=== PATIENT | female | born 1970 | race Caucasian/White ===

== ENCOUNTER → 2017-10-17 | Outpatient (POV) | payer OTHER, SELFPAY | PROVIDERS: Visit Provider Podiatrist ==

== ENCOUNTER → 2017-11-21 09:14 | Outpatient (POV) | payer OTHER, SELFPAY | PROVIDERS: Visit Provider Podiatrist | DX: Z00.00 Encounter for general adult medical examination without abnormal findings (principal) ==

== ENCOUNTER 2017-12-29 07:07 | Day surgery (SDC) | payer OTHER, SELFPAY ==
[2017-12-23 14:34] VITALS: BMI 28.3
[2017-12-29] VITALS (12 sets, daily range): BP systolic 92–142; BP diastolic 55–87; PULSE 69–84; RESP 15–18; TEMP 36.6–36.7; O2SAT 97–100
[2017-12-29 07:24] LABS: Urine Pregnancy, HCG Qual. Negative (Negative)
--- NOTE | 2017-12-29 08:08 | HMH.PROC ---
[facility] Procedure Note Procedure Note:: Upper Endoscopy Procedure Report: Esophagogastroduodenoscopy with cold biopsies and TTS balloon dilation Endoscopost: Chandu Whitfield II, MD Referring Physician: Oliver Castaneda M.D. Date of Procedure: December 29, 2017 Equipment: Olympus GIF 180 standard upper endoscope Sedation: Fentanyl 150 mg IV/ Versed 9 mg IV Indications: Mrs. Armenta is a 47-year-old female who is here for diagnostic upper endoscopy. The patient did have dyspepsia over 2 months ago with epigastric abdominal discomfort with burning. She was placed on Dexilant which helped but she developed a cough. She has had frequent clearance of the throat, coughing and globus sensation. She has some dysphagia. She has more bloating and belching then she had previously. She does have a history of constipation/obstipation is improved when she takes the fiber bowel regimen (MiraLAX plus Metamucil). 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 Saurabh Silva). The patient reports no heartburn, reflux, nausea or early satiety. The patient did have a colonoscopy in September 2017 and had a 25-30 mm distal rectal polyp that encompassed one third half of the circumference of the distal rectum to the pectinate line. This was removed via submucosal resection/elevation of polyp with snare cautery. The patient's maternal and paternal grandmothers had colon cancer. Procedure: Prior to the procedure, a history and physical exam was performed, and patient's medications and allergies were reviewed. The risks, benefits and alternatives of the sedation and procedure were discussed with the patient. All questions were answered and informed consent was obtained. The patient was brought to the procedure room. Patient identification and proposed procedure were verified by the physician and the nurse. The patient was placed in a left lateral decubitus position and the scope was passed under direct vision. Throughout the procedure, the patient's blood pressure, pulse, and oxygen saturations were monitored continuously. The upper GI endoscopy was accomplished without difficulty. The patient tolerated the procedure well. Findings: The scope was passed directly into the upper esophagus and advanced to the third portion of the duodenum. The post bulbar duodenum and duodenal bulb were normal with normal mucosa and conniventes. The scope was withdrawn through a normal duodenal bulb and pylorus into the stomach. There was some bile reflux with mild linear erythema of the antrum. The remainder of the antrum, body and fundus of the stomach were grossly normal. Upon retroflexion there was a very small sliding 1-2 cm hiatal hernia. 2 biopsies were taken in the antrum and along the lesser curvature for histology to rule out gastritis and/or H pylori. The scope was then withdrawn into the esophagus. There was a single tongue of salmon colored mucosa that was biopsied to rule out short segment Cormier's esophagus. There were tertiary contractions and evidence of moderate esophageal dysmotility. There was a proximal esophageal inlet patch that was biopsied. The cricopharyngeus had reduced resting tone with spasm and the esophagus was dilated in this proximal esophagus with resistance at the cricopharyngeus. This was dilated to 20 mm with a TTS hydrostatic balloon. The remainder of the esophageal mucosa was normal. Impression: 1. Cricopharyngeal spasm status post dilation to 20 mm 2. Nonerosive GERD with mild esophageal dysmotility and very small sliding hiatal hernia 3. Large proximal esophageal inlet patch 4. Bile reflux with mild linear reactive gastritis Plan: I would consider dual low-dose PPI (omeprazole 20 mg daily) plus promotility therapy. I do feel that the patient has functional GERD. I do feel this relates to her obstipation and I would recommend co
--- NOTE | 2017-12-29 08:23 | P.PCN_ITS ---
[facility] Procedure Note Procedure Note:: Upper Endoscopy Procedure Report: Esophagogastroduodenoscopy with cold biopsies and TTS balloon dilation Endoscopost: Chandu Whitfield II, MD Referring Physician: Oliver Castaneda M.D. Date of Procedure: December 29, 2017 Equipment: Olympus GIF 180 standard upper endoscope Sedation: Fentanyl 150 mg IV/ Versed 9 mg IV Indications: Mrs. Armenta is a 47-year-old female who is here for diagnostic upper endoscopy. The patient did have dyspepsia over 2 months ago with epigastric abdominal discomfort with burning. She was placed on Dexilant which helped but she developed a cough. She has had frequent clearance of the throat , coughing and globus sensation. She has some dysphagia. She has more bloating and belching then she had previously. She does have a history of constipation/obstipation is improved when she takes the fiber bowel regimen ( MiraLAX plus Metamucil). 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 Saurabh Silva). The patient reports no heartburn, reflux, nausea or early satiety. The patient did have a colonoscopy in September 2017 and had a 25-30 mm distal rectal polyp that encompassed one third half of the circumference of the distal rectum to the pectinate line. This was removed via submucosal resection/elevation of polyp with snare cautery. The patient's maternal and paternal grandmothers had colon cancer. Procedure: Prior to the procedure, a history and physical exam was performed, and patient' s medications and allergies were reviewed. The risks, benefits and alternatives of the sedation and procedure were discussed with the patient. All questions were answered and informed consent was obtained. The patient was brought to the procedure room. Patient identification and proposed procedure were verified by the physician and the nurse. The patient was placed in a left lateral decubitus position and the scope was passed under direct vision. Throughout the procedure, the patient's blood pressure, pulse, and oxygen saturations were monitored continuously. The upper GI endoscopy was accomplished without difficulty. The patient tolerated the procedure well. Findings: The scope was passed directly into the upper esophagus and advanced to the third portion of the duodenum. The post bulbar duodenum and duodenal bulb were normal with normal mucosa and conniventes. The scope was withdrawn through a normal duodenal bulb and pylorus into the stomach. There was some bile reflux with mild linear erythema of the antrum. The remainder of the antrum, body and fundus of the stomach were grossly normal. Upon retroflexion there was a very small sliding 1-2 cm hiatal hernia. 2 biopsies were taken in the antrum and along the lesser curvature for histology to rule out gastritis and/or H pylori. The scope was then withdrawn into the esophagus. There was a single tongue of salmon colored mucosa that was biopsied to rule out short segment Cormier's esophagus. There were tertiary contractions and evidence of moderate esophageal dysmotility. There was a proximal esophageal inlet patch that was biopsied. The cricopharyngeus had reduced resting tone with spasm and the esophagus was dilated in this proximal esophagus with resistance at the cricopharyngeus. This was dilated to 20 mm with a TTS hydrostatic balloon. The remainder of the esophageal mucosa was normal. Impression: 1. Cricopharyngeal spasm status post dilation to 20 mm 2. Nonerosive GERD with mild esophageal dysmotility and very small sliding hiatal hernia 3. Large proximal esophageal inlet patch 4. Bile refl
--- NOTE | 2017-12-29 08:39 | P.PCN_ITS ---
[facility] Procedure Note Procedure Note:: Flexible Sigmoidoscopy Procedure Report: Sigmoidoscopy with cold snare polypectomy Endoscopist: Chandu Whitfield II, MD Referring physician: Oliver Castaneda M.D. Date of Procedure: December 29, 2017 Equipment: Olympus 180 variable stiffness pediatric colonoscope Sedation: Fentanyl 200 mg IV/ Versed 9 mg IV Indication: Mrs. Armenta is a 47-year-old female who is here for diagnostic sigmoidoscopy. The patient did have a colonoscopy in September 2017 and had a 25-30 mm distal rectal polyp that encompassed one third half of the circumference of the distal rectum to the pectinate line. This was removed via submucosal resection/elevation of polyp with snare cautery. 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 The patient's maternal and paternal grandmothers had colon cancer. The patient reports no rectal bleeding, abdominal pain, weight loss or change in bowel habits. She does have long-standing obstipation/constipation and takes her combined fiber bowel regimen (MiraLAX plus Metamucil) primarily during the week. Procedure: Prior to the procedure, a history and physical exam was performed, and patient' s medications and allergies were reviewed. The risks, benefits and alternatives of the sedation and procedure were discussed with the patient. All questions were answered and informed consent was obtained. The patient was brought to the procedure room. Patient identification and proposed procedure were verified by the physician and the nurse. The patient was placed in a left lateral decubitus position and the scope was passed under direct vision. Throughout the procedure, the patient's blood pressure, pulse, and oxygen saturations were monitored continuously. The colonoscopy was accomplished without difficulty. The patient tolerated the procedure well. Findings: The scope was passed directly through the anal canal into the rectum and advanced to 40 cm. Upon withdrawal the sigmoid and rectum were normal. There were no mucosal abnormalities. Upon retroflexion, there was white fibrotic scar from where the polyp was removed. Some of the scar tissue was shaved via cold snare polypectomy but this was minimal and there was no residual polyp at the site. Impression: 1. No residual rectal polyp with some fibrosis at polypectomy site Plan: I would recommend sigmoidoscopy in 1 year and I will plan repeat colonoscopy at 3 years (September 2020).
== END 2017-12-29 09:40 | disposition home or self-care (01) ==
LOC: OUTP 07:08
PROVIDERS: PCP Internal Medicine Adolescent Medicine; Visit Provider Internal Medicine Gastroenterology
PROC: 0DJD8ZZ Inspection of Lower Intestinal Tract, Via Natural or Artificial Opening Endoscopic (ICD-10-PCS; CPT 45330; principal; 2017-12-29 08:00)
PROC: 0DJ08ZZ Inspection of Upper Intestinal Tract, Via Natural or Artificial Opening Endoscopic (ICD-10-PCS; CPT 43235; 2017-12-29 08:00)
DX: J39.2 Other diseases of pharynx (principal); K21.9 Gastro-esophageal reflux disease without esophagitis; K44.9 Diaphragmatic hernia without obstruction or gangrene; K22.4 Dyskinesia of esophagus; K29.60 Other gastritis without bleeding; K63.89 Other specified diseases of intestine
CPT/HCPCS: 43239; 43249; 45331; 81025; 99152; 99153; C1726

== ENCOUNTER → 2018-01-05 13:30 | Outpatient (CLI) | payer OTHER, SELFPAY ==
--- NOTE | 2018-01-05 14:19 | US_ITS ---
ULTRASOUND THYROID PROCEDURE: Multiple sagittal & transverse ultrasound images of the thyroid. HISTORY: Follow-up thyroid nodules history of possible dose thyroiditis. COMPARISON: Previous thyroid ultrasound 09/09/2016 & January 2012 ----- FINDINGS: Thyroid has a lobulated irregular contour bilateral, withslightly coarse inhomogeneous architecture bilateral. Generous vascularity to both right and left lobe again seen is RIGHT LOBE: 3.3 cm length x 1.1 cm AP X1 .3 cm wide Nodule A: Solid nodule 8 mm AP & 8 mm transverse. Mildly hyperechoic at upper pole right lobe. Nodularity at the upper pole is similar to previous study did not slightly diminished. Similar nodularity of not slightly less pronounced than 2016. No significant progression findings . LEFT LOBE: 3 cm length x 1.1 cm x 1.1 cm. Left lobe also has coarse slightly inhomogeneous character but no definitive nodule or mass. . : ISTHMUS: Again see a solid mild hypoechoic nodule at the left aspect of the isthmus. It measures up to 9 mm transverse x 1.1 mm AP. Similar in size. No significant change. IMPRESSION No significant new findings versus 2016. Modest size gland with inhomogeneous coarse architecture... Compatible with thyroiditis. Most Notable Is a Solid Nodule is seen at the left isthmus. It is Stable With no significant change. Vague nodular appearance at the upper pole right lobe again evident. No progression. Basically stable
== END ==
PROVIDERS: PCP Internal Medicine Adolescent Medicine; Visit Provider Otolaryngology
DX: E04.1 Nontoxic single thyroid nodule (principal)
CPT/HCPCS: 76536

== ENCOUNTER → 2018-01-26 15:36 | Outpatient (POV) | payer OTHER, SELFPAY | PROVIDERS: PCP Internal Medicine Adolescent Medicine; Visit Provider Nurse Practitioner Acute Care | DX: Z00.00 Encounter for general adult medical examination without abnormal findings (principal) ==

== ENCOUNTER → 2018-11-12 10:04 | Outpatient (CLI) | payer OTHER, SELFPAY ==
--- NOTE | 2018-11-12 10:07 | US_ITS ---
US gallbladder HISTORY: ITS.REASON: RUQ PAIN ORDERING PHYSICIAN: Jeanne Coyne PATIENT AGE: 47 years Comparison: None FINDINGS: PANCREAS: Unremarkable. No obvious mass or abnormal fluid collection. No ductal dilatation LIVER: No focal liver lesions demonstrated. Homogeneous echogenicity. No intrahepatic biliary ductal dilatation evident RIGHT KIDNEY: Unremarkable. Normal size and echogenicity. No hydronephrosis GALLBLADDER: No gallstones, gallbladder wall thickening, pericholecystic fluid, or biliary dilatation. There is a minimal amount of sludge versus precipitated bile of questioned clinical significance IMPRESSION: Minimum gallbladder sludge versus concentrated bile of questioned clinical significance otherwise Negative gallbladder/right upper quadrant ultrasound
--- NOTE | 2018-11-12 15:07 | US_ITS ---
US transvaginal HISTORY: Pelvic pain with abnormal bleeding, intermittent spotting cycles, prior ablation ITS.REASON: US T/V- Abnormal bleeding ORDERING PHYSICIAN: Jeanne Coyne PATIENT AGE: 47 years Comparison: None FINDINGS: UTERUS: The uterus measures 10 x 4 x 6.4 cm. Combined endometrial thickness is 1 cm. No uterine mass evident. RIGHT OVARY: 4.2 x 4 x 4.4 cm there is a 3.7 cm simple right ovarian cyst LEFT OVARY: 2 x 2 cm, unremarkable CUL-DE-SAC FLUID: No cul-de-sac fluid apparent OTHER FINDINGS: None IMPRESSION: 1. 3.7 cm simple appearing right ovarian cyst 2. Bulky uterus. Endometrial thickness upper limits of normal. No obvious uterine mass or fibroid
== END ==
PROVIDERS: PCP Internal Medicine Adolescent Medicine; Visit Provider Nurse Practitioner Family
DX: N92.6 Irregular menstruation, unspecified (principal); R10.11 Right upper quadrant pain
CPT/HCPCS: 76705; 76830

== ENCOUNTER → 2018-11-16 09:11 | Outpatient (CLI) | payer OTHER, SELFPAY ==
--- NOTE | 2018-11-16 09:14 | NM_ITS ---
NM hepatobiliary wo pharm HISTORY: Right upper quadrant pain, nausea after eating ITS.REASON: RUQ PAIN ORDERING PHYSICIAN: Oliver Castaneda MD PATIENT AGE: 47 years COMPARISON: None DOSE: 8.5 mCi technetium Choletec, fatty meal with ensure. Some nausea noted after the fatty meal FINDINGS: Homogeneous activity is present within the hepatic parenchyma. Activity is present in the gallbladder by 30 minutes. Activity is present in the small bowel by 10 minutes. The gallbladder ejection fraction is calculated to be 94% The patient did not report pain or other symptoms during CCK infusion. IMPRESSION: Unremarkable hepatobiliary scan and gallbladder ejection fraction. No evidence of common or cystic duct obstruction with normal gallbladder ejection fraction
--- NOTE | 2018-11-16 09:54 | HMH.ITSHM ---
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 []ZYRTEC SYNTHROID OMEPRAZOLE VIBRID
== END ==
PROVIDERS: PCP Internal Medicine Adolescent Medicine; Visit Provider Internal Medicine Adolescent Medicine
DX: R10.11 Right upper quadrant pain (principal)
CPT/HCPCS: 78226; A9537

== ENCOUNTER → 2018-11-23 09:18 | Outpatient (POV) | payer OTHER, SELFPAY | PROVIDERS: Visit Provider Nurse Practitioner Acute Care | DX: Z00.00 Encounter for general adult medical examination without abnormal findings (principal) ==

== ENCOUNTER → 2018-11-24 13:00 | Outpatient (POV) | payer OTHER, SELFPAY | PROVIDERS: Visit Provider Dermatology | DX: Z00.00 Encounter for general adult medical examination without abnormal findings (principal) ==

== ENCOUNTER → 2019-01-11 16:11 | Outpatient (CLI) | payer OTHER, SELFPAY ==
--- NOTE | 2019-01-11 16:16 | XR_ITS ---
XR foot wt bearing LT 3V HISTORY: ITS.REASON: pain ORDERING PHYSICIAN: Carie Curtis DPM PATIENT AGE: 48 years COMPARISON: None FINDINGS: No fracture or dislocation. No lytic or blastic change. There is normal mineralization.. The joint spaces are well-preserved. No significant degenerative/arthritic changes. No erosive changes evident. There is mild pes planus IMPRESSION: Mild pes planus otherwise negative left foot
--- NOTE | 2019-01-11 16:16 | XR_ITS ---
XR foot wt bearing RT 3V HISTORY: Right foot pain and swelling, plantar fibroma ITS.REASON: pain ORDERING PHYSICIAN: Carie Curtis DPM PATIENT AGE: 48 years COMPARISON: None FINDINGS: There is minimal hallux valgus with mild hypertrophic changes of the distal aspect of the first metatarsal. Bony hypertrophy versus an old fracture noted along the dorsal and proximal aspect of the navicular. There is a small calcaneal spur at 6 mm. No fracture or dislocation. No lytic or blastic change. IMPRESSION: 1. Mild hallux valgus with bunion formation. 2. Spurring versus old fracture of the dorsal and proximal aspect of the navicular
== END ==
PROVIDERS: PCP Internal Medicine Adolescent Medicine; Visit Provider Podiatrist
DX: M72.2 Plantar fascial fibromatosis (principal)
CPT/HCPCS: 73630

== ENCOUNTER → 2019-02-24 08:35 | Outpatient (CLI) | payer OTHER, SELFPAY ==
--- NOTE | 2019-02-24 08:36 | MR_ITS ---
MR foot RT wo/w con CLINICAL INDICATION: ] Pain laterally swelling ITS.REASON: r/o peroneal tendon tear, 4-5th met fx. ORDERING PHYSICIAN: Carie Curtis DPM PATIENT AGE: 48 years Comparison: 01/11/2019 TECHNIQUE: Routine multiplanar multiecho sequences are performed without and with contrast. FINDINGS: These are large [id number] images which results in some decrease in definition of the ligamentous and tendinous structures. Bony structures: Minimal edema and enhancement is noted within the superior posterior aspect of the navicular. This is nonspecific. Mild hypertrophic changes are present at the talonavicular joint dorsally. There is mild hallux valgus with mild osteoarthritis of the first MTP joint. There is some cortical irregularity of the distal and medial aspect of the first metatarsal, and hyperintense on T2 with some minimal enhancement. Small amount of fluid signal intensity is present between the first and second, second and third, and third and fourth metatarsal distally and may be related to intermetatarsal bursitis. The Achilles tendon has an unremarkable appearance.. The tibiofibular and talofibular ligaments appear intact. The deltoid ligament also appears intact. The posterior tibial, flexor digitorum longus, and flexor hallucis longus tendons have an unremarkable appearance. The peroneal brevis tendon has an abnormal contour with a catheter should not deformity indicated of a partial split rupture. There is marked thinning of the peroneal brevis tendon distally as well. The peroneal longus has an unremarkable appearance. IMPRESSION: 1. Deformity of the peroneal brevis tendon inferior to the tip of the lateral malleolus consistent with a partial split rupture with thinning of the peroneal brevis tendon distally 2. Mild hallux valgus with subcortical cystic changes of the distal aspect of the first metatarsal medially. 3. Minimal edema and enhancement of the anterior superior navicular
== END ==
PROVIDERS: PCP Internal Medicine Adolescent Medicine; Visit Provider Podiatrist
DX: M76.71 Peroneal tendinitis, right leg (principal)
CPT/HCPCS: 73720; A9576

== ENCOUNTER 2019-03-17 16:02 | Outpatient (RCR) | payer OTHER, SELFPAY | END 2019-03-17 16:15 | disposition home or self-care (01) | LOC: PT 16:02 | PROVIDERS: Visit Provider Orthopaedic Surgery | DX: M65.4 Radial styloid tenosynovitis [de Quervain] (principal); M79.645 Pain in left finger(s); M25.532 Pain in left wrist | CPT/HCPCS: 97760 ==

== ENCOUNTER → 2019-03-18 14:20 | Outpatient (CLI) | payer OTHER, SELFPAY ==
--- NOTE | 2019-03-18 14:22 | MR_ITS ---
MR foot LT wo/w con CLINICAL INDICATION: ITS.REASON: peroneal tendon tear ORDERING PHYSICIAN: Carie Curtis DPM PATIENT AGE: 48 years Comparison: 01/11/2019 TECHNIQUE: Routine multiplanar multiecho sequences are performed without and with gadolinium enhancement. FINDINGS: Minimal hallux valgus. No fracture or dislocation. No bone marrow edema apparent. A small amount fluid is present between the head of the second and third metatarsal and the third and fourth metatarsals. The tibiofibular and talofibular ligaments are unremarkable. The deltoid tendon has an unremarkable appearance. Particularly tendon is intact. There is some thinning of the posterior tibialis tendon distally at its insertion upon the navicular some of which may be due to magic angle artifact. Tendinopathy/tendinosis is also considered. The flexor digitorum longus and flexor hallucis longus has an unremarkable appearance. The anterior tibialis and extensor tendons are unremarkable. There is some thinning of the peroneal longus and brevis tendons distally with slight increased T2 signal which may be due to tendinopathy/tendinosis. A definite tear is not identified. IMPRESSION: 1. Minimal hallux valgus. 2. There is some thinning of the posterior tibialis distally as well as the peroneal tendons which may be due to tendinopathy/tendinosis. No definite tendon tear apparent. 3. Possible intermetatarsal bursitis at the second and third intermetatarsal space
== END ==
PROVIDERS: PCP Internal Medicine Adolescent Medicine; Visit Provider Podiatrist
DX: S86.312A Strain of muscle(s) and tendon(s) of peroneal muscle group at lower leg level, left leg, initial encounter (principal)
CPT/HCPCS: 73720; A9576

== ENCOUNTER 2019-04-21 17:30 | Outpatient (RCR) | payer OTHER, SELFPAY ==
--- NOTE | 2019-04-12 17:02 | HMH.PTOPEV ---
PT Outpatient Evaluation Rehab PT Outpatient Evaluation Start: 04/12/19 16:09 Freq: Status: Active Protocol: Document 04/12/19 16:28 BRY (Rec: 04/12/19 17:02 TERENCETIFFANI [id number]) Electronically Signed By Jeison Franco PT 04/12/19 16:28 Outpatient Therapy Subjective History Subjective History Pt reports to PT for c/o L foot pain. Pt reports she had R foot peroneal tendon tear and has been in a boot since January. Pt reports L foot pain began in February after R foot booted. Pt has ankle brace on L foot. Chief Complaint Pain,Gives out/Unstable, Weakness Symptom Type Ache,Throb,Sharp,Dull,Stabbing Symptoms Relieved By Nothing Symptoms Aggravated By Standing,Physical Activity, Walking Prior Functional Limitations None Current Functional Limitations Recreation Activity,Walking, Stairs,Balance Symptom Description Intermittent Level of pain today (0-10) 0 Pain scale - at its best (0-10) 0 Pain scale - at its worst (0-10) 6 Ankle/Foot Eval Gait Observation General Gait Pattern Observation Antalgic Gait Assistive Device Ambulation Assistive Device None Palpation Tenderness left Ankle/Foot Palpation Findings Tenderness Ankle/Foot Palpation Overall Comment TTP L peroneal insertion ATF TTP negative PTF TTP negative CF TTP negative Deltoid ligament TTP negative ROM Ankle/Foot Dorsiflexion w/Knee Extended 10 Active Range Motion (degrees) Ankle/Foot Plantar Flexion Active Range 50 of Motion (degrees) Ankle/Foot Eversion Active Range of 30 Motion (degrees) Ankle/Foot Inversion Active Range of 35 Motion (degrees) MMT Ankle Dorsiflexion Strength Grade 5 Normal Ankle Plantarflexion Strength Grade 5 Normal Foot Eversion Strength Grade 4 Good Foot Inversion Strength Grade 4 Good Ankle Dorsiflexors Muscle Tone Normal Description Special Tests Ankle Anterior Drawer Test Negative Left Ankle Eversion Test Negative Left Ankle Inversion (supination) Test Negative Left Outpatient Therapy Assessment Impairments Problems/Impairmments Palpation Tenderness,Impaired Strength,Impaired Gait Pattern ,Impaired Walking,Impaired Standing,Impaired Household Care,Impaired Stair Climbing,
== END 2019-04-21 17:35 | disposition home or self-care (01) ==
LOC: PT 17:30
PROVIDERS: Visit Provider Podiatrist
DX: M76.72 Peroneal tendinitis, left leg (principal)
CPT/HCPCS: 97033; 97035; 97110; 97163

== ENCOUNTER → 2019-05-20 11:09 | Outpatient (CLI) | payer OTHER, SELFPAY ==
--- NOTE | 2019-05-20 11:28 | MM_ITS ---
MM Dig screening mamm BI w/CAD ORDERING PHYSICIAN : Pee Back MD PATIENT AGE: 48 years GENDER: Female \COMPARISON: Previous mammograms: June 2017, May 2016,. 2014, 2013 digital mammogram studies,, as well as film screen studies, September 2009, 2007: INDICATION: ITS.REASON: Routine Screening Mammogram TECHNIQUE: Standard CC and MLO images were obtained. Bilateral axillary cc views additional spot views deep right breast R2 CAD reviewed. FINDINGS : The previous studies are again very helpful in this patient . Stable areas of asymmetric density are again seen Moderately dense and inhomogeneous fibroglandular elements bilaterally. This pattern slightly decreases sensitivity of mammography Self breast examination would be encouraged given this pattern , particularly for this in this knowledgeable/ experienced patient regarding breast evaluation. Left breast: No new areas significant concern Area of asymmetric island of density medial left breast is been present [id number] with no significant change. Area of density at the deep breast upper-outer quadrant is again noted and appears overall stable. .. Thus these areas can befollowed safely. Right breast: Again stable areas of asymmetric glandular density throughout upper-outer quadrant of right breast. Minimal nodularity medial breast axillary cc view overall appears reasonably stable. Labeled A. Additional spot views performed in this region showed density to compress out. I believe it is Similar to 2016 on MLO view in can be followed. However to be extra cautious a follow-up right mammogram 6 -- 9 months suggested ......IMPRESSION:.......... No new areas of significant concern. . Heterogeneous, asymmetric breast pattern. This slightly decreases sensitivity of mammography but significant appearing area since our studies. There is minor focal density at the deep margin of right breast appears overall similar to studies dating back to 2016;-but because of this feature I would suggest a follow-up right mammogram to include deep view of medial right breast in 6-9 months to further confirm stability here. BI-RADS Category: 3 Probably Benign Finding Short Term Follow-up RECOMMENDED FOLLOW-UP: 6M 6 MONTH FOLLOW-UP (A letter has been sent to the patient regarding results of the study.)
== END ==
PROVIDERS: PCP Internal Medicine Adolescent Medicine; Visit Provider Nurse Practitioner Obstetrics & Gynecology
DX: Z12.31 Encounter for screening mammogram for malignant neoplasm of breast (principal)
CPT/HCPCS: 77067

== ENCOUNTER → 2019-09-30 13:41 | Outpatient (CLI) | payer OTHER, SELFPAY ==
--- NOTE | 2019-09-30 13:59 | US_ITS ---
PROCEDURE: US TRANSVAGINAL CLINICAL INDICATION: US T/V- Menorrhagia Heavy irregular cycles COMPARISON: TRANVAG US transvaginal from 11/12/2018 FINDINGS: UTERUS: The uterus is 10 x 4.6 x 6 cm. Combined endometrial thickness is 5 mm. Small amount fluid is present within the endometrium. No uterine mass evident. LEFT OVARY: 2.9 x 3 cm. Blood flow is present. No obvious mass. RIGHT OVARY: 4.8 x 4.6 cm. There is a right ovarian cyst 4 x 3.7 cm. The cyst does appear simple with no internal septations or internal echoes. Cyst is not significantly changed. No cul-de-sac fluid. IMPRESSION: 1. Bulky uterus. No endometrial thickening. Small amount of endometrial fluid. 2. Stable 4 cm right ovarian cyst Dictated by: Leonardo Canales MD 09/30/2019 16:29 Electronically signed by Leonardo Canales MD in [place] 09/30/2019 16:29
== END ==
PROVIDERS: PCP Internal Medicine Adolescent Medicine; Visit Provider Nurse Practitioner Obstetrics & Gynecology
DX: N92.0 Excessive and frequent menstruation with regular cycle (principal)
CPT/HCPCS: 76830

== ENCOUNTER → 2019-10-06 09:12 | Outpatient (CLI) | payer OTHER, SELFPAY ==
[2019-10-06 09:49] LABS: Basophils % 0.8 % (0.1-2.0); Eosinophils # 0.1 K/mm3 (0.0-0.4); Eosinophils % 1.3 % (0.1-12.0); Hematocrit 32.2 % (37.0-47.0); Hemoglobin 9.4 g/dL (12.2-16.2); Lymphocytes # 2.2 K/mm3 (0.7-4.5); Lymphocytes % 39.1 % (10-50); Mean Corpuscular Hemoglobin 26.3 pg (27.0-31.2); Mean Corpuscular Volume 90.7 fl (81-99); Mean Platelet Volume 8.2 fl (7.4-10.4); Monocytes # 0.3 K/mm3 (0.1-1.0); Monocytes % 4.7 % (1.7-9.3); Neutrophils % 54.2 % (37.0-80.0); Platelet Count 360 K/mm3 (142-424); Red Blood Count 3.55 M/mm3 (4.20-5.40); Red Cell Distribution Width 13.9 % (11.5-17.5); White Blood Count 5.5 K/mm3 (4.8-10.8)
[2019-10-06 15:20] LABS: Alanine Aminotransferase 15 U/L (12-78); Albumin Level 3.4 gm/dL (3.4-5.0); Alkaline Phosphatase 59 U/L (46-116); Aspartate Amino Transferase 17 U/L (15-37); Bilirubin,Total 0.2 mg/dL (0.2-1.0); Blood Urea Nitrogen 15 mg/dL (7-18); Carbon Dioxide 26 mmol/L (21.0-32.0); Chloride 105 mmol/L (98-107); Chol/HDL Ratio 3.4 (1-3.5); Cholesterol 183 mg/dL (140-200); Creatinine,Serum 0.98 mg/dL (0.55-1.02); Estimated Glomerular Filt Rate 60 ml/min (>60); Free Thyroxine Index 2.7 ug/dL (5.93-13.13); GFR (African American) 73 ML/MIN (>60); Globulin 3.3 gm/dl (1.3-3.2); Glucose 91 mg/dL (74-106); HDL Cholesterol 54 mg/dL (29-89); LDL Cholesterol 120 mg/dL (0-130); Sodium 141 mmol/L (136-145); Thyroid Stimulating Hormone 1.52 uIU/ml (0.358-3.740); Total Protein,Serum 6.7 gm/dL (6.4-8.2); Triglycerides 47 mg/dL (30-200); Triiodothryronine (T3) Uptake 39 % (31-39); VLDL Cholesterol 9 mg/dL (0-40)
== END ==
PROVIDERS: Visit Provider Internal Medicine Adolescent Medicine
DX: E03.9 Hypothyroidism, unspecified (principal); I34.1 Nonrheumatic mitral (valve) prolapse
CPT/HCPCS: 36415; 80053; 80061; 84436; 84443; 84479; 85025

== ENCOUNTER → 2019-10-11 15:31 | Outpatient (POV) | payer OTHER, SELFPAY | PROVIDERS: Visit Provider Nurse Practitioner Family | DX: Z00.00 Encounter for general adult medical examination without abnormal findings (principal) ==

== ENCOUNTER → 2019-10-21 09:30 | Outpatient (CLI) | payer OTHER, SELFPAY ==
[2019-10-21 10:02] LABS: Basophils # 0.1 K/mm3 (0-0.2); Basophils % 1.1 % (0.1-2.0); Eosinophils # 0.1 K/mm3 (0.0-0.4); Eosinophils % 1.4 % (0.1-12.0); Hemoglobin 10.6 g/dL (12.2-16.2); Lymphocytes # 1.9 K/mm3 (0.7-4.5); Lymphocytes % 32.7 % (10-50); Mean Corpuscular HGB Conc 29.4 g/dL (31.8-35.4); Mean Corpuscular Hemoglobin 26.4 pg (27.0-31.2); Mean Corpuscular Volume 89.8 fl (81-99); Mean Platelet Volume 8.2 fl (7.4-10.4); Monocytes # 0.3 K/mm3 (0.1-1.0); Monocytes % 5.2 % (1.7-9.3); Neutrophils # 3.5 K/mm3 (1.8-7.8); Neutrophils % 59.6 % (37.0-80.0); Platelet Count 345 K/mm3 (142-424); Red Blood Count 4.01 M/mm3 (4.20-5.40); White Blood Count 5.8 K/mm3 (4.8-10.8)
[2019-10-21 11:23] LABS: Anion Gap 12.9 mEq/L (5-15); Blood Urea Nitrogen 19 mg/dL (7-18); Calcium 8.4 mg/dL (8.5-10.1); Carbon Dioxide 28 mmol/L (21.0-32.0); Chloride 104 mmol/L (98-107); Creatinine,Serum 1.22 mg/dL (0.55-1.02); Estimated Glomerular Filt Rate 47 ml/min (>60); GFR (African American) 56 ML/MIN (>60); Glucose 78 mg/dL (74-106); Potassium 3.9 mmoL/L (3.5-5.1); Sodium 141 mmol/L (136-145)
== END ==
PROVIDERS: Visit Provider Nurse Practitioner Obstetrics & Gynecology
DX: Z01.818 Encounter for other preprocedural examination (principal); N92.0 Excessive and frequent menstruation with regular cycle
CPT/HCPCS: 36415; 80048; 85025

== ENCOUNTER → 2019-11-23 08:39 | Outpatient (POV) | payer OTHER, SELFPAY | PROVIDERS: Visit Provider Dermatology | DX: Z00.00 Encounter for general adult medical examination without abnormal findings (principal) ==

== ENCOUNTER → 2019-11-30 13:11 | Outpatient (CLI) | payer OTHER, SELFPAY ==
--- NOTE | 2019-11-30 13:13 | MM_ITS ---
PROCEDURE: MM DIG MAMM BI DX with 3D tomosynthesis CLINICAL INDICATION: 6 month follow up xmg COMPARISON: DMSB DIG MAMM-SCREEN MURIEL from 05/28/2016 DMSB DIG MAMM-SCREEN MURIEL W/CAD from 07/04/2017 DIG MAMM-SCREEN MURIEL from 05/20/2019 TECHNIQUE: Standard CC and MLO images were obtained along with two view breast 3D tomosynthesis. FINDINGS: Average fibroglandular tissue. Scattered areas of asymmetry not significantly changed. No malignant appearing mass or malignant-appearing microcalcification. Benign-appearing nodular opacity is present in the lower aspect of the right breast not significantly changed at approximately 4 mm. Faint calcifications noted in the outer aspect of the right breast which on tomograms appear to be vascular IMPRESSION: BI-RAD Category: 2 Benign Finding(s) FOLLOW-UP: 1YR 1 Year Follow-up (A letter has been sent to the patient regarding results of the study.) Dictated by: Leonardo Canales MD 12/06/2019 09:39 Electronically signed by Leonardo Canales MD in [place] 12/06/2019 09:39
== END ==
PROVIDERS: PCP Internal Medicine Adolescent Medicine; Visit Provider Nurse Practitioner Obstetrics & Gynecology
DX: R92.8 Other abnormal and inconclusive findings on diagnostic imaging of breast (principal)
CPT/HCPCS: 77063; 77066; 77067

== ENCOUNTER → 2019-12-17 09:51 | Outpatient (CLI) | payer OTHER, SELFPAY ==
[2019-12-17 10:51] LABS: Basophils # 0.1 K/mm3 (0-0.2); Basophils % 0.9 % (0.1-2.0); Eosinophils # 0.1 K/mm3 (0.0-0.4); Eosinophils % 0.9 % (0.1-12.0); Hematocrit 41.5 % (37.0-47.0); Lymphocytes # 1.9 K/mm3 (0.7-4.5); Lymphocytes % 32.2 % (10-50); Mean Corpuscular HGB Conc 31.4 g/dL (31.8-35.4); Mean Corpuscular Hemoglobin 27.7 pg (27.0-31.2); Mean Corpuscular Volume 88.3 fl (81-99); Mean Platelet Volume 7.8 fl (7.4-10.4); Monocytes # 0.3 K/mm3 (0.1-1.0); Monocytes % 4.9 % (1.7-9.3); Neutrophils # 3.6 K/mm3 (1.8-7.8); Platelet Count 286 K/mm3 (142-424); Red Cell Distribution Width 17.8 % (11.5-17.5); White Blood Count 5.8 K/mm3 (4.8-10.8)
[2019-12-17 12:27] LABS: Alanine Aminotransferase 17 U/L (12-78); Albumin Level 3.8 gm/dL (3.4-5.0); Albumin/Globulin Ratio 1.2 (1.1-1.8); Alkaline Phosphatase 59 U/L (46-116); Anion Gap 12.3 mEq/L (5-15); Aspartate Amino Transferase 19 U/L (15-37); Bilirubin,Total 0.3 mg/dL (0.2-1.0); Blood Urea Nitrogen 15 mg/dL (7-18); Calcium 8.5 mg/dL (8.5-10.1); Carbon Dioxide 28 mmol/L (21.0-32.0); Chloride 105 mmol/L (98-107); Creatinine,Serum 0.97 mg/dL (0.55-1.02); Estimated Glomerular Filt Rate 61 ml/min (>60); Free Thyroxine Index 2.1 ug/dL (5.93-13.13); GFR (African American) 73 ML/MIN (>60); Globulin 3.2 gm/dl (1.3-3.2); Glucose 92 mg/dL (74-106); Potassium 4.3 mmoL/L (3.5-5.1); Sodium 141 mmol/L (136-145); T4 (Thyroxine) 6.1 ug/dl (4.7-13.3); Thyroid Stimulating Hormone 2.06 uIU/ml (0.358-3.740); Triiodothryronine (T3) Uptake 34 % (31-39)
[2019-12-18 15:32] LABS: Vitamin B12 798 pg/mL (232-1245); Vitamin D 25 Hydroxy 29.4 ng/mL (30.0-100.0)
== END ==
PROVIDERS: Visit Provider Internal Medicine Adolescent Medicine
DX: D50.0 Iron deficiency anemia secondary to blood loss (chronic) (principal); E03.9 Hypothyroidism, unspecified; E55.9 Vitamin D deficiency, unspecified
CPT/HCPCS: 36415; 80053; 82607; 82652; 84436; 84443; 84479; 85025

== ENCOUNTER → 2020-01-24 15:34 | Outpatient (CLI) | payer OTHER, SELFPAY ==
[2020-01-24 17:12] LABS: Anion Gap 6.1 mEq/L (5-15); Blood Urea Nitrogen 17 mg/dl (7-17); Calcium 8.8 mg/dl (8.4-10.2); Carbon Dioxide 27 mmol/L (22.0-30.0); Chloride 103 mmol/L (98-107); Estimated Glomerular Filt Rate 52 ml/min (>60); GFR (African American) 63 ML/MIN (>60); Glucose 97 mg/dl (74-100); Potassium 4.1 mmoL/L (3.5-5.1); Sodium 132 mmol/L (136-145)
[2020-01-24 17:32] LABS: Troponin I < 0.01 ng/ml (0.00-0.034)
[2020-01-24 18:57] LABS: Basophils % 0.5 % (0.1-2.0); Eosinophils # 0.1 K/mm3 (0.0-0.4); Eosinophils % 0.7 % (0.1-12.0); Hematocrit 40.6 % (37.0-47.0); Hemoglobin 12.9 g/dL (12.2-16.2); Lymphocytes # 2.4 K/mm3 (0.7-4.5); Lymphocytes % 33.2 % (10-50); Mean Corpuscular HGB Conc 31.8 g/dL (31.8-35.4); Mean Corpuscular Hemoglobin 29.2 pg (27.0-31.2); Mean Corpuscular Volume 91.6 fl (81-99); Monocytes # 0.3 K/mm3 (0.1-1.0); Monocytes % 4.2 % (1.7-9.3); Neutrophils # 4.5 K/mm3 (1.8-7.8); Neutrophils % 61.4 % (37.0-80.0); Platelet Count 231 K/mm3 (142-424); Red Blood Count 4.43 M/mm3 (4.20-5.40); Red Cell Distribution Width 16.7 % (11.5-17.5); White Blood Count 7.3 K/mm3 (4.8-10.8)
== END ==
PROVIDERS: Visit Provider Urology
DX: R00.0 Tachycardia, unspecified (principal); R06.00 Dyspnea, unspecified; R07.89 Other chest pain; R12 Heartburn; R55 Syncope and collapse
CPT/HCPCS: 36415; 80048; 84484; 85025

== ENCOUNTER → 2020-01-27 11:57 | Outpatient (CLI) | payer OTHER, SELFPAY | PROVIDERS: PCP Internal Medicine Adolescent Medicine; Referring Provider Urology; Visit Provider Internal Medicine Adolescent Medicine | DX: R00.0 Tachycardia, unspecified (principal); R06.00 Dyspnea, unspecified; R07.89 Other chest pain; R12 Heartburn; R55 Syncope and collapse; Z86.79 Personal history of other diseases of the circulatory system | CPT/HCPCS: 93306 ==

== ENCOUNTER → 2020-03-25 09:43 | Outpatient (CLI) | payer OTHER, SELFPAY ==
[2020-03-26 08:30] LABS: Covid-19 Nasal PCR Sendout UK NOT DETECTED
== END ==
PROVIDERS: Visit Provider Internal Medicine Gastroenterology
DX: Z03.818 Encounter for observation for suspected exposure to other biological agents ruled out (principal)
CPT/HCPCS: U0003

== ENCOUNTER 2020-03-27 07:32 | Day surgery (SDC) | payer OTHER, SELFPAY ==
--- NOTE | 2020-03-23 08:54 | SUR.PREOP ---
03/22/2020--PHONE CALL MADE TO PATIENT. PATIENT UNDERSTANDS THAT LAB WORK AND COVID TESTING NEEDS TO BE COMPLETED BY 11 AM ON 03/25/2020. PATIENT UNDERSTANDS IF LAB WORK AND COVID-19 TESTS ARE NOT COMPLETED BY 12PM ON THAT DATE, THE SURGERY SCHEDULED WILL BE CANCELLED AND RESCHEDULED FOR ANOTHER TIME.
[2020-03-23 10:31] VITALS: BMI 29.2
[2020-03-27] VITALS (7 sets, daily range): BP systolic 83–111; BP diastolic 48–63; PULSE 76–86; RESP 18–20; TEMP 36.6–36.8; O2SAT 95–98
[2020-03-27 07:59] LABS: Urine Pregnancy, HCG Qual. Negative (Negative)
--- NOTE | 2020-03-27 08:21 | HMH.ANESCL ---
[facility] Anesthesia Checklist - Patient Identification Patient Identification: Arm Band, Verbal (Name & ) - Structural Data Admitted From: Home Planned Operative Procedure/s: sigmoid Consent for Planned Operative Procedure(s) Verified: Yes Verified Documents: History and Physical - NPO Status Verified Time NPO: 00:00 - Chart Verification Results Verified: CBC, BMP - Additional verifications Patient : No Anesthesia Reactions: No Hx Blood Transfusions: No Blood Transfusion Reaction: No Cephalosporin Allergy: No Previous Colonoscopy: Yes - Cardiovascular Assessment Heart Sounds: S1 & S2 Pulse Strength: Baseline Pulse Rhythm: Regular Peripheral Edema: No - Airway Assessment C-Spine Mobility Assessed: Yes TMJ Mobility Assessed: Yes Dentition: Good Dentition - Neurological Assessment Level of Consciousness: Awake, Alert, Appropriate Hx Seizures: No Numbness or tingling in extremities: No - Anesthesia Plan Anesthesia Risk discussed: Yes Anesthesia Plan: Verified ASA Class: II Anesthesia Type: MAC [facility] History I have reviewed the patient's past medical history: Yes Medical History: Reports:: Anxiety, Depression, Gastroesophageal Reflux Disease(GERD), Heart Murmur Denies:: Cancer, Diabetes Mellitus Type 1, Diabetes Mellitus Type 2, Internal Pacemaker, Lung Disease, MRSA, Seizures *Have you ever received a pneumonia vaccine?: No *Have you received a flu vaccine this season?: Yes Other Medical History: Reports: Hypothyroidism, Thyroid Disease, Other. Denies: Blood Transfusion Reaction Anesthesia experience/problems:: none Other Surgeries: Yes: No Previous Surgery, Colonoscopy, EGD, Sinus Surgery. No: Pacemaker Amputation: No Fractures: No - *Social History Educational Level: Completed College Smoking Status: Never smoker Alcohol Intake: current Alcohol Intake Frequency:: holidays/special occasions only Substance Use Type: denies use *Occupational Status:: employed Housing: house Household Members: spouse *Travel in the last 8 weeks: None - Psychiatric History Pschychiatric History:: Reports:: Anxiety, Depression Family Hx:: No significant family history
--- NOTE | 2020-03-27 08:37 | HMH.PROC ---
[facility] Procedure Note Procedure Note:: Flexible Sigmoidoscopy Procedure Report: Sigmoidoscopy with snare cautery polypectomy Endoscopist: Chandu Whitfield II, MD Referring physician: Oliver Castaneda M.D. Date of Procedure: March 27, 2020 Equipment: Olympus 180 variable stiffness pediatric colonoscope Sedation: MAC sedation Indication: Mrs. Armenta is a 49-year-old female who is here for follow-up surveillance sigmoidoscopy. In September 2017, she had a 30 mm distal rectal polyp that encompassed one half of the circumference of the distal rectum and was adjacent to the pectinate line. This was resected using endoscopic mucosal resection. She had follow-up surveillance in December 2017 and there was minimal residual. Her last surveillance sigmoidoscopy was in January 2019 and there was minimal residual that was removed (6 to 8 mm). The polypectomy site was ablated using APC. The patient does state that both of her grandmothers had colon cancer. She does take the fiber bowel regimen daily (MiraLAX plus Konsyl). She has had worsened reflux over the last few weeks and resumed Reglan last week. She is on omeprazole 20 mg by mouth daily. Procedure: Prior to the procedure, a history and physical exam was performed, and patient's medications and allergies were reviewed. The risks, benefits and alternatives of the sedation and procedure were discussed with the patient. All questions were answered and informed consent was obtained. The patient was brought to the procedure room. Patient identification and proposed procedure were verified by the physician and the nurse. The patient was placed in a left lateral decubitus position and the scope was passed under direct vision. Throughout the procedure, the patient's blood pressure, pulse, and oxygen saturations were monitored continuously. The colonoscopy was accomplished without difficulty. The patient tolerated the procedure well. Findings: On digital rectal examination there was normal rectal tone. There were no external hemorrhoids. The colonoscope was then introduced through the anal canal to the rectum and advanced to 60 cm. Upon withdrawal of the colonoscope, the descending, sigmoid and rectum were normal in appearance with normal mucosa. Within the rectum, there was a white fibrotic scar from prior polyp resection. There appeared to be minimal residual polyp on the very distal edge of the fibrotic scar but it was difficult even with narrowband imaging to determine whether this was adenomatous flat tissue. This tissue was completely removed and ablated using snare cautery and coagulation. Impression: 1. Minimal distal rectal polyp residual status post snare cautery Plan: As long as there is no residual adenomatous tissue on the resected specimen, I would now recommend repeat surveillance colonoscopy in 2 years with examination of the entire colon. I would recommend that she continue MiraLAX plus Konsyl. I would consider adding Zelnorm twice daily. I would continue Reglan and increase omeprazole to 40 mg. I will discuss findings with patient and family.
== END 2020-03-27 09:55 | disposition home or self-care (01) ==
LOC: OUTP 07:32
PROVIDERS: PCP Internal Medicine Adolescent Medicine; Visit Provider Internal Medicine Gastroenterology
PROC: 0DJD8ZZ Inspection of Lower Intestinal Tract, Via Natural or Artificial Opening Endoscopic (ICD-10-PCS; CPT 45330; principal; 2020-03-27 08:30)
DX: Z12.11 Encounter for screening for malignant neoplasm of colon (principal); K62.1 Rectal polyp; Z86.010 Personal history of colon polyps
CPT/HCPCS: 45338; 81025

== ENCOUNTER 2020-04-04 02:07 | Emergency (ER) | payer OTHER, SELFPAY ==
--- NOTE | 2020-04-04 02:07 | ECG_ITS ---
APPROVED REPORT Exam: Resting ECG HR:88 bpm ECG Measurements Heart Rate 88 AXES KS 154 P 58 QRSd 74 QRS 34 QT 340 T 26 QTc 411 <Conclusion> Normal sinus rhythm Normal ECG Electronically signed by : Pablo Ríos, 04/04/2020 08:38:44
[2020-04-04 02:08] VITALS: BP 139/75; PULSE 95; RESP 14; TEMP 36.9; O2SAT 98; BMI 24.9
--- NOTE | 2020-04-04 02:21 | XR_ITS ---
PROCEDURE: XR CHEST 2V CLINICAL HISTORY: pain COMPARISON: No exams were available for comparison FINDINGS: The cardiomediastinal silhouette and pulmonary vascularity are within normal limits. The lungs are clear without infiltrates, suspicious nodules, or pleural effusions. No acute bony abnormalities. IMPRESSION: No acute findings. Dictated by: Leonardo Canales MD 04/04/2020 06:53 Electronically signed by Leonardo Canales MD in [place] 04/04/2020 06:53
[2020-04-04 02:32] LABS: Basophils # 0.1 K/mm3 (0-0.2); Basophils % 0.8 % (0.1-2.0); Eosinophils # 0.2 K/mm3 (0.0-0.4); Eosinophils % 1.3 % (0.1-12.0); Hematocrit 40.4 % (37.0-47.0); Hemoglobin 13.8 g/dL (12.2-16.2); Lymphocytes # 3.5 K/mm3 (0.7-4.5); Lymphocytes % 25.1 % (10-50); Mean Corpuscular Hemoglobin 31.1 pg (27.0-31.2); Mean Corpuscular Volume 91.5 fl (81-99); Mean Platelet Volume 7.6 fl (7.4-10.4); Monocytes # 0.7 K/mm3 (0.1-1.0); Neutrophils # 9.4 K/mm3 (1.8-7.8); Neutrophils % 67.8 % (37.0-80.0); Platelet Count 281 K/mm3 (142-424); Red Blood Count 4.42 M/mm3 (4.20-5.40); Red Cell Distribution Width 14.2 % (11.5-17.5); White Blood Count 13.8 K/mm3 (4.8-10.8)
--- NOTE | 2020-04-04 02:34 | HMH.EDNVD ---
ED Disposition Clinical Impression: Abdominal pain Qualifiers: Abdominal location: epigastric Qualified Code(s): R10.13 - Epigastric pain Disposition: Home, Self-Care Condition on Discharge: Good Instructions: DI for Acute Abdomen Additional Instructions: call pcp for follow up Referrals: Oliver Castaneda MD [Primary Care Provider] - - Critical Care Critical Care Time: No Attestation: On 04/04/20, the high probability of a clinically significant, sudden or life threatening deterioration of the following system(s) required my full and direct attention, intervention and personal management. The time I documented below is in addition to time spent performing reported procedures but includes the following listed in this critical care notation. Medical Decision Making - Medical Records Medical records reviewed: Yes: I reviewed the patient's medical records. - [place] Inquiry Pt receiving controlled substance: No Vital Signs: 04/04/20 02:08 04/04/20 03:08 04/04/20 03:57 Temperature 98.4 F Temperature Source Oral Pulse Rate [Right Brachial] 95 H 90 88 Respiratory Rate 14 16 14 Blood Pressure [Right Arm] 139/75 131/73 129/78 Blood Pressure Mean [Right Arm] 96 92 95 Blood Pressure Source [Right Arm] Automatic Cuff Automatic Cuff Automatic Cuff Blood Pressure Position [Right Arm] Sitting Sitting Sitting 02 Sat by Pulse Oximetry 98 99 98 Oxygen Delivery Method Room Air Room Air Room Air 04/04/20 05:00 Temperature Temperature Source Pulse Rate [Right Brachial] 75 Respiratory Rate 14 Blood Pressure [Right Arm] 128/57 L Blood Pressure Mean [Right Arm] 80 Blood Pressure Source [Right Arm] Automatic Cuff Blood Pressure Position [Right Arm] Sitting 02 Sat by Pulse Oximetry 98 Oxygen Delivery Method Room Air - Lab Data Lab results reviewed: Yes: I reviewed the patient's lab results. Lab Results 04/04/20 02:00: Urine Color Yellow, Urine Appearance Clear, Urine pH 6.0, Ur Specific [place] >= 1.030, Urine Protein Negative, Urine Glucose (UA) Negative, Urine Ketones Negative, Urine Blood Trace-i, Urine Nitrate Negative, Urine Bilirubin Negative, Urine Urobilinogen 0.2, Ur Leukocyte Esterase Negative, Urine RBC 3-5, Urine WBC Occasional, Ur Squamous Epith Cells Tntc, Urine Bacteria 1+ 04/04/20 02:00: WBC 13.8 H, RBC 4.42, Hgb 13.8, Hct 40.4, MCV 91.5, MCH 31.1, MCHC 34.0, RDW 14.2, Plt Count 281, MPV 7.6, Neut % (Auto) 67.8, Lymph % (Auto) 25.1, Citrus % (Auto) 5.0, Eos % (Auto) 1.3, Baso % (Auto) 0.8, Neut # (Auto) 9.4 H, Lymph # (Auto) 3.5, Citrus # (Auto) 0.7, Eos # (Auto) 0.2, Baso # (Auto) 0.1 04/04/20 02:00: Urine HCG, Qual Negative 04/04/20 02:00: Sodium 137, Potassium 3.7, Chloride 102, Carbon Dioxide 28, Anion Gap 10.7, BUN 13, Creatinine 0.90, Estimated Creat Clear 77, Estimated GFR 66, Est GFR ( Amer) 80, Glucose 118 H, Calcium 9.2, Total Bilirubin 0.3, AST 26, ALT 15, Alkaline Phosphatase 88, Troponin I < 0.01, Total Protein 8.4 H, Albumin 4.5, Globulin 3.9 H, Albumin/Globulin Ratio 1.2, Amylase 66, Lipase 112 Result diagrams: 04/04/20 02:00 04/04/20 02:00 Orders (Tests/Meds): ED MEDICATIONS Generic Name Dose Route Start Last Admin Trade Name Freq PRN Reason Stop Dose Admin Sodium Chloride 1,000 mls @ 999 mls/hr 04/04/20 02:30 04/04/20 02:32 Sod Chlor 0.9% 1000ml Bag IV 04/04/20 03:30 999 mls/hr .Q1H1M ROX Administration Sodium Chloride 8 ml 04/04/20 02:23 Sodium Chloride 0.9% 10ml Vial IV 05/04/20 02:22 NEEDED PRN dilute pepcid Discontinued Medications Generic Name Dose Route Start Last Admin Trade Name Freq PRN Reason Stop Dose Admin Famotidine 20 mg 04/04/20 02:23 04/04/20 02:31 Pepcid 20mg/2ml Vial IV 04/04/20 02:24 20 mg ONCE ONE Administration Hydromorphone HCl 1 mg 04/04/20 03:51 04/04/20 03:57 Dilaudid 2mg/Ml Syringe IV 04/04/20 03:52 1 mg ONCE ONE Administration Metoclopramide HCl 10 mg 04/04/20 02:23 04/04/20 02:32
[2020-04-04 02:37] LABS: Alanine Aminotransferase 15 U/L (12-78); Albumin Level 4.5 g/dl (3.5-5.0); Albumin/Globulin Ratio 1.2 (1.1-1.8); Alkaline Phosphatase 88 U/L (38-126); Amylase 66 U/L (30-110); Anion Gap 10.7 mEq/L (5-15); Aspartate Amino Transferase 26 U/L (14-36); Bilirubin,Total 0.3 mg/dl (0.2-1.3); Blood Urea Nitrogen 13 mg/dl (7-17); Calcium 9.2 mg/dl (8.4-10.2); Carbon Dioxide 28 mmol/L (22.0-30.0); Chloride 102 mmol/L (98-107); Creatinine Clearance Estimated 77 mL/min (50-200); Estimated Glomerular Filt Rate 66 ml/min (>60); GFR (African American) 80 ML/MIN (>60); Globulin 3.9 g/dL (1.3-3.2); Glucose 118 mg/dl (74-100); Lipase 112 U/L (23-300); Potassium 3.7 mmoL/L (3.5-5.1); Sodium 137 mmol/L (136-145); Total Protein,Serum 8.4 g/dl (6.3-8.2)
[2020-04-04 02:46] LABS: Appearance,Urine CLEAR (Clear); Bilirubin,Urine Negative (Negative); Blood, Urine TRACE-I (Negative); Color,Urine YELLOW (Yellow); Glucose,Urine (UA) Negative (Negative); Ketones,Urine Negative (Negative); Leukocyte Esterase,Urine Negative (Negative); Microscopic, Urine URINE MICROSCOPIC (MICROSCOPIC); Nitrate,Urine Negative (Negative); Protein,Urine Negative (Negative); Specific Gravity, Urine >= 1.030 (1.005-1.030); Urobilinogen,Urine 0.2 EU/dl (0.2)
--- NOTE | 2020-04-04 02:46 | US_ITS ---
PROCEDURE: US GALLBLADDER CLINICAL INDICATION: abd pain Right upper quadrant pain COMPARISON: No exams were available for comparison FINDINGS: Pancreas: The pancreas is not well demonstrated. CT or MRI may provide more thorough evaluation of the pancreas if clinically desired. Liver: Unremarkable. There is appropriate direction of blood flow within a non dilated portal vein. Right kidney: Unremarkable appearing. No hydronephrosis. Gallbladder: No stones are evident. There is no gallbladder wall thickening. Common duct is normal in diameter. IMPRESSION: Negative gallbladder ultrasound. No stones evident. Poor demonstration of the pancreas Dictated by: Leonardo Canales MD 04/04/2020 06:53 Electronically signed by Leonardo Canales MD in [place] 04/04/2020 06:53
[2020-04-04 02:57] LABS: Troponin I < 0.01 ng/ml (0.00-0.034)
[2020-04-04 03:08] VITALS: BP 131/73; PULSE 90; RESP 16; O2SAT 99
[2020-04-04 03:09] LABS: Bacteria,Urine 1+ /lpf; Squamous Epithelial Cell,Urine TNTC #/hpf (0-5); Urine Pregnancy, HCG Qual. Negative (Negative); WBC,Urine Occasional #/hpf (0-3)
--- NOTE | 2020-04-04 03:56 | PC.NURSE ---
RADIOLOGY AT BEDSIDE. PT IS LAUGHING AND JOKING WITH STAFF.
[2020-04-04 03:57] VITALS: BP 129/78; PULSE 88; RESP 14; O2SAT 98
[2020-04-04 05:00] VITALS: BP 128/57; PULSE 75; RESP 14; O2SAT 98
[2020-04-04 05:33] VITALS: BP 100/56; PULSE 72; RESP 14; TEMP 36.9; O2SAT 97
[2020-04-04 06:01] LABS: Troponin I < 0.01 ng/ml (0.00-0.034)
== END 2020-04-04 05:44 | disposition home or self-care (01) ==
PROVIDERS: Emergency Provider Emergency Medicine; PCP Internal Medicine Adolescent Medicine
DX: R10.13 Epigastric pain (principal); R11.0 Nausea; F41.8 Other specified anxiety disorders; K21.9 Gastro-esophageal reflux disease without esophagitis; R01.1 Cardiac murmur, unspecified; E03.9 Hypothyroidism, unspecified; Z79.899 Other long term (current) drug therapy
CPT/HCPCS: 71046; 76705; 80053; 81001; 81025; 82150; 83690; 84484; 85025; 93005; 96365; 96375; 99283; 99284; J2405

== ENCOUNTER → 2020-05-30 09:30 | Outpatient (CLI) | payer OTHER, SELFPAY ==
[2020-05-30 12:49] LABS: Coronavirus 19 IgG Antibody Negative (Negative); Coronavirus 19 IgM Antibody Negative (Negative)
== END ==
PROVIDERS: Nurse Practitioner Family; Visit Provider Internal Medicine Adolescent Medicine
DX: Z20.828 Contact with and (suspected) exposure to other viral communicable diseases (principal)
CPT/HCPCS: 36415; 86328

== ENCOUNTER → 2020-10-27 14:27 | Outpatient (CLI) | payer OTHER, SELFPAY | PROVIDERS: PCP Internal Medicine Adolescent Medicine; Visit Provider Nurse Practitioner Family | DX: Z03.818 Encounter for observation for suspected exposure to other biological agents ruled out (principal) | CPT/HCPCS: U0003 ==

== ENCOUNTER → 2020-12-14 15:28 | Outpatient (CLI) | payer OTHER, SELFPAY ==
--- NOTE | 2020-12-14 15:33 | MM_ITS ---
PROCEDURE: MM DIG SCREENING MAMM BI W/CAD Digital Breast Tomosynthesis Included CLINICAL INDICATION: Routine Screening Mammogram Personal or family history of breast cancer. COMPARISON: MG DMSB DIG MAMM-SCREEN MURIEL W/CAD from 07/04/2017 MG DIG MAMM-SCREEN MURIEL from 05/20/2019 MG MM DIG MAMM BI DX W/CAD from 11/30/2019 TECHNIQUE: Standard CC and MLO images and 3D Tomosynthesis was obtained. R2 CAD reviewed. FINDINGS: Fibroglandular densities are seen in both breasts and the findings are bilateral and symmetrical. There is minimal arterial calcification lateral aspect right breast. There is no new or suspicious lesion in either breast and no suspicious microcalcifications. There is a stable tiny benign-appearing nodular density outer quadrant right breast. IMPRESSION: Moderate diffuse breast density with no suspicious lesions seen BI-RAD Category: 2 Benign Finding(s) FOLLOW-UP: 1YR 1 Year Follow-up (A letter has been sent to the patient regarding results of the study.) Dictated by: Dr. Sarmad Govea MD 12/18/2020 17:43 Dr. Sarmad Govea MD in [place] 12/18/2020 17:43
== END ==
PROVIDERS: PCP Internal Medicine Adolescent Medicine; Visit Provider Nurse Practitioner Obstetrics & Gynecology
DX: Z12.31 Encounter for screening mammogram for malignant neoplasm of breast (principal)
CPT/HCPCS: 77063; 77067

== ENCOUNTER → 2021-01-15 09:12 | Outpatient (POV) | payer OTHER, SELFPAY | PROVIDERS: Visit Provider Nurse Practitioner Family | DX: Z00.00 Encounter for general adult medical examination without abnormal findings (principal) ==

== ENCOUNTER → 2021-01-16 13:10 | Outpatient (POV) | payer OTHER, SELFPAY | PROVIDERS: Visit Provider Dermatology | DX: Z00.00 Encounter for general adult medical examination without abnormal findings (principal) ==

== ENCOUNTER → 2021-02-09 08:32 | Outpatient (CLI) | payer OTHER, SELFPAY ==
--- NOTE | 2021-02-09 08:34 | FL_ITS ---
PROCEDURE: FL UPPER GI W AIR CLINICAL INDICATION: GASTROESOPHAGEAL REFLUX DISEASE COMPARISON: No exams were available for comparison TECHNIQUE: FLUOROSCOPY TIME : FINDINGS: The esophagus distends normally without evidence of focal lesions. There are multiple tertiary contractions noted, predominantly in the distal esophagus. No evidence of hiatus hernia is noted. The stomach demonstrates normal distension without evidence of focal abnormality. No evidence of mucosal abnormality is noted in the stomach. The duodenal bulb is unremarkable. The duodenum appears unremarkable. The duodenal jejunal junction appears unremarkable. Normal peristalsis. The duodenal C-loop is nondisplaced. IMPRESSION: Findings are suggestive of esophageal dysmotility. No evidence of significant reflux. No evidence of hiatus hernia. Dictated by: Annamarie Lee 02/09/2021 12:03 Annamarie Lee in [place] 02/09/2021 12:03
== END ==
PROVIDERS: PCP Internal Medicine Adolescent Medicine; Visit Provider Internal Medicine Adolescent Medicine
DX: K21.9 Gastro-esophageal reflux disease without esophagitis (principal)
CPT/HCPCS: 74246

== ENCOUNTER → 2021-02-27 09:26 | Outpatient (CLI) | payer OTHER, SELFPAY ==
[2021-02-27 09:46] LABS: Basophils # 0.1 K/mm3 (0-0.2); Basophils % 0.9 % (0.1-2.0); Eosinophils # 0.2 K/mm3 (0.0-0.4); Eosinophils % 2.3 % (0.1-12.0); Hematocrit 42.8 % (37.0-47.0); Hemoglobin 13.9 g/dL (12.2-16.2); Lymphocytes # 2.3 K/mm3 (0.7-4.5); Lymphocytes % 30.9 % (10-50); Mean Corpuscular HGB Conc 32.4 g/dL (31.8-35.4); Mean Corpuscular Hemoglobin 29.8 pg (27.0-31.2); Mean Corpuscular Volume 92.1 fl (81-99); Mean Platelet Volume 7.4 fl (7.4-10.4); Monocytes # 0.3 K/mm3 (0.1-1.0); Monocytes % 4.1 % (1.7-9.3); Neutrophils # 4.6 K/mm3 (1.8-7.8); Neutrophils % 61.9 % (37.0-80.0); Platelet Count 298 K/mm3 (142-424); Red Blood Count 4.65 M/mm3 (4.20-5.40); Red Cell Distribution Width 14.1 % (11.5-17.5); White Blood Count 7.5 K/mm3 (4.8-10.8)
[2021-02-27 10:08] LABS: Chloride 104 mmol/L (98-107); Sodium 138 mmol/L (136-145)
[2021-02-27 10:09] LABS: Potassium 4.2 mmoL/L (3.5-5.1)
[2021-02-27 10:11] LABS: Alanine Aminotransferase 17 U/L (12-78); Albumin Level 4.3 g/dl (3.5-5.0); Albumin/Globulin Ratio 1.3 (1.1-1.8); Alkaline Phosphatase 63 U/L (38-126); Anion Gap 12.2 mEq/L (5-15); Aspartate Amino Transferase 29 U/L (14-36); Bilirubin,Total 0.6 mg/dl (0.2-1.3); Blood Urea Nitrogen 13 mg/dl (7-17); Carbon Dioxide 26 mmol/L (22.0-30.0); Estimated Glomerular Filt Rate 66 ml/min (>60); GFR (African American) 80 ML/MIN (>60); Globulin 3.3 g/dL (1.3-3.2); Total Protein,Serum 7.6 g/dl (6.3-8.2)
[2021-02-27 10:12] LABS: Calcium 9.2 mg/dl (8.4-10.2); Glucose 108 mg/dl (74-100)
[2021-02-27 10:28] LABS: Triiodothryronine (T3) Uptake 39 % (23.5-40.5)
[2021-02-27 10:29] LABS: Free Thyroxine Index 2.7 ug/dL (5.93-13.13)
[2021-02-27 10:42] LABS: Thyroid Stimulating Hormone 1.19 uIU/mL (0.465-4.68)
--- NOTE | 2021-02-27 10:50 | XR_ITS ---
PROCEDURE: XR CHEST 2V CLINICAL HISTORY: DYSPNEA ON EXERTION COMPARISON: CR XR CHEST 2V from 04/04/2020 FINDINGS: The cardiomediastinal silhouette and pulmonary vascularity are within normal limits. The lungs are clear without infiltrates, suspicious nodules, or pleural effusions. There are partially calcified hilar nodes and subcarinal nodes. No acute bony abnormalities. IMPRESSION: Old granulomatous disease, no acute chest pathology Dictated by: Dr. Sarmad Govea MD 02/27/2021 11:13 Dr. Sarmad Govea MD in [place] 02/27/2021 11:13
== END ==
PROVIDERS: PCP Internal Medicine Adolescent Medicine; Visit Provider Internal Medicine Adolescent Medicine
DX: R06.09 Other forms of dyspnea (principal); E03.9 Hypothyroidism, unspecified
CPT/HCPCS: 36415; 71046; 80053; 84436; 84443; 84479; 85025

== ENCOUNTER → 2021-03-21 11:32 | Outpatient (CLI) | payer OTHER, SELFPAY | PROVIDERS: Visit Provider Internal Medicine Gastroenterology | DX: Z01.812 Encounter for preprocedural laboratory examination (principal); Z11.52 Encounter for screening for COVID-19 | CPT/HCPCS: U0003 ==

== ENCOUNTER 2021-03-23 07:22 | Day surgery (SDC) | payer OTHER, SELFPAY ==
[2021-03-21 10:46] VITALS: BMI 28.9
[2021-03-23] VITALS (7 sets, daily range): BP systolic 101–109; BP diastolic 60–72; PULSE 71–86; RESP 16–18; TEMP 36.3; O2SAT 94–99
--- NOTE | 2021-03-23 07:57 | P.PN_ITS ---
[facility] Anesthesia Checklist - Structural Data Admitted From: Home Planned Operative Procedure/s: egd Consent for Planned Operative Procedure(s) Verified: Yes - Additional verifications Anesthesia Reactions: No Hx Blood Transfusions: No Blood Transfusion Reaction: No - Airway Assessment C-Spine Mobility Assessed: Yes TMJ Mobility Assessed: Yes Dentition: Good Dentition - Neurological Assessment Level of Consciousness: Awake, Alert, Appropriate - Anesthesia Plan Anesthesia Risk discussed: Yes Anesthesia Plan: Verified ASA Class: II Anesthesia Type: MAC [facility] History I have reviewed the patient's past medical history: Yes Medical History: Reports:: Anxiety, Depression, Gastroesophageal Reflux Disease(GERD), Heart Murmur Denies:: Cancer, Diabetes Mellitus Type 1, Diabetes Mellitus Type 2, Internal Pacemaker, Lung Disease, MRSA, Seizures *Have you ever received a pneumonia vaccine?: No *Have you received a flu vaccine this season?: Yes Other Medical History: Reports: Hypothyroidism, Thyroid Disease, Other. Denies: Blood Transfusion Reaction Anesthesia experience/problems:: none Other Surgeries: Yes: No Previous Surgery, Colonoscopy, EGD, Sinus Surgery. No: Pacemaker Amputation: No Fractures: No - *Social History Last grade of school completed: Some college Smoking Status: Never smoker Alcohol Intake: never Alcohol Intake Frequency:: holidays/special occasions only Substance Use Type: denies use *Occupational Status:: employed Housing: house Household Members: spouse *Travel in the last 8 weeks: None - Psychiatric History Pschychiatric History:: Reports:: Anxiety, Depression Family Hx:: No significant family history
--- NOTE | 2021-03-23 09:04 | HMH.PROC ---
[facility] Procedure Note Procedure Note:: Upper Endoscopy Procedure Report: Esophagogastroduodenoscopy with cold biopsies and TTS balloon dilation Endoscopost: Chandu Whitfield II, MD Referring Physician: Oliver Castaneda M.D. Date of Procedure: March 23, 2021 Equipment: Olympus GIF 190 standard upper endoscope Sedation: MAC sedation Indications: Mrs. Armenta is a 50-year-old female with recent choking, coughing and aspirating. She often feels as if she is getting strangled. She reports frequent clearance of the throat and globus sensation. This occurred after she was sweeping concrete dust 6 weeks ago. She did have an upper GI series on February 09, 2021 and this did show evidence of esophageal dysmotility. She was also told that she may have early COPD. Recently, she has had more belching. She does have some bloating. She reports no heartburn, reflux, chest pain or dyspepsia. She does have a history of functional dyspepsia. She previously had globus sensation that improved with the fiber bowel regimen (combined MiraLAX plus Konsyl) and Reglan. The patient did try Zelnorm previously which resulted in more significant abdominal pain. She did have an EGD with me in December 2017 that showed cricopharyngeal spasm with esophageal dysmotility. She had nonerosive GERD. She has increased her omeprazole to 40 mg by mouth daily. She stopped the Reglan because she started developing some tremors and this did resolve. Procedure: Prior to the procedure, a history and physical exam was performed, and patient's medications and allergies were reviewed. The risks, benefits and alternatives of the sedation and procedure were discussed with the patient. All questions were answered and informed consent was obtained. The patient was brought to the procedure room. Patient identification and proposed procedure were verified by the physician and the nurse. The patient was placed in a left lateral decubitus position and the scope was passed under direct vision. Throughout the procedure, the patient's blood pressure, pulse, and oxygen saturations were monitored continuously. The upper GI endoscopy was accomplished without difficulty. The patient tolerated the procedure well. Findings: The scope was passed directly into the upper esophagus and advanced to the third portion of the duodenum. The post bulbar duodenum and duodenal bulb were normal with normal mucosa and conniventes. The scope was withdrawn through a normal duodenal bulb and pylorus into the stomach. There was mild linear reactive gastropathy of the antrum. The remainder of the body and fundus of the stomach were grossly normal. Upon retroflexion there was a very small sliding 1 to 2 cm hiatal hernia. 2 biopsies were taken from the gastric antrum to rule out reactive gastropathy. There was a gastric 8 mm polyp in the body of the stomach along the greater curvature that was removed completely with cold biopsy. The endoscope was then withdrawn into the esophagus. There was a serrated Z-line. Biopsies were taken at the GE junction. There was no evidence of Cormier's esophagus or reflux esophagitis. There was no Schatzki's ring. There were strong tertiary contractions and evidence of moderate esophageal dysmotility. The entire esophagus was dilated to 60 Spanish/20 mm with a TTS hydrostatic balloon. There was resistance at the cricopharyngeus (cricopharyngeal spasm). The remainder of the esophageal mucosa was normal. Impression: 1. Cricopharyngeal spasm status post dilation to 20 mm 2. Nonerosive GERD with moderate esophageal dysmotility and very small sliding 1 to 2 cm hiatal hernia 3. Mild linear reactive gastropathy of antrum 4. Gastric polyp (8 mm) Plan: I will follow-up the biopsies. The patient does have functional GERD driven by obstipation/colonic fermentation with gas pressure. This is resulting in her continued globus, functional reflux and esophageal dysmotility. We will discuss additio
== END 2021-03-23 10:05 | disposition home or self-care (01) ==
LOC: OUTP 07:22
PROVIDERS: PCP Internal Medicine Adolescent Medicine; Visit Provider Internal Medicine Gastroenterology
PROC: 0DJ08ZZ Inspection of Upper Intestinal Tract, Via Natural or Artificial Opening Endoscopic (ICD-10-PCS; CPT 43235; principal; 2021-03-23 08:30)
DX: J39.2 Other diseases of pharynx; K21.9 Gastro-esophageal reflux disease without esophagitis; K22.4 Dyskinesia of esophagus; K44.9 Diaphragmatic hernia without obstruction or gangrene; K31.9 Disease of stomach and duodenum, unspecified; K31.7 Polyp of stomach and duodenum; F41.9 Anxiety disorder, unspecified; F32.9 Major depressive disorder, single episode, unspecified; E03.9 Hypothyroidism, unspecified; R01.1 Cardiac murmur, unspecified; Z79.899 Other long term (current) drug therapy; Z88.1 Allergy status to other antibiotic agents
CPT/HCPCS: 43239; 43249; C1726

== ENCOUNTER → 2021-04-25 14:33 | Outpatient (CLI) | payer OTHER, SELFPAY ==
[2021-04-25 15:29] LABS: Basophils # 0.1 K/mm3 (0-0.2); Basophils % 1.1 % (0.1-2.0); Eosinophils # 0.1 K/mm3 (0.0-0.4); Eosinophils % 0.5 % (0.1-12.0); Hematocrit 39.7 % (37.0-47.0); Hemoglobin 13.6 g/dL (12.2-16.2); Lymphocytes # 2.2 K/mm3 (0.7-4.5); Lymphocytes % 23.7 % (10-50); Mean Corpuscular HGB Conc 34.3 g/dL (31.8-35.4); Mean Corpuscular Hemoglobin 30.9 pg (27.0-31.2); Mean Platelet Volume 7.8 fl (7.4-10.4); Monocytes # 0.4 K/mm3 (0.1-1.0); Monocytes % 4.2 % (1.7-9.3); Neutrophils # 6.6 K/mm3 (1.8-7.8); Neutrophils % 70.5 % (37.0-80.0); Platelet Count 323 K/mm3 (142-424); Red Blood Count 4.41 M/mm3 (4.20-5.40); Red Cell Distribution Width 14.1 % (11.5-17.5); White Blood Count 9.4 K/mm3 (4.8-10.8)
[2021-04-25 16:19] LABS: Estimated Glomerular Filt Rate 58 ml/min (>60); GFR (African American) 70 ML/MIN (>60); Glucose 97 mg/dl (74-100); Potassium 4.4 mmoL/L (3.5-5.1)
[2021-04-25 17:52] LABS: Anion Gap 11.4 mEq/L (5-15); Blood Urea Nitrogen 16 mg/dl (7-17); Calcium 9.2 mg/dl (8.4-10.2); Carbon Dioxide 27 mmol/L (22.0-30.0); Chloride 103 mmol/L (98-107); Sodium 137 mmol/L (136-145)
[2021-04-25 19:36] LABS: HCG Qualitative, Serum Negative (Negative)
== END ==
PROVIDERS: Visit Provider Nurse Practitioner Obstetrics & Gynecology
DX: Z01.818 Encounter for other preprocedural examination (principal); Z11.52 Encounter for screening for COVID-19; N39.3 Stress incontinence (female) (male)
CPT/HCPCS: 36415; 80048; 84703; 85025; U0003

== ENCOUNTER 2021-04-27 06:12 | Day surgery (SDC) | payer OTHER, SELFPAY ==
[2021-04-25 10:43] VITALS: BMI 29.6
[2021-04-27] VITALS (16 sets, daily range): BP systolic 109–132; BP diastolic 68–81; PULSE 80–95; RESP 14–20; TEMP 36.1–40; O2SAT 95–99
--- NOTE | 2021-04-27 07:52 | HMH.ANESCL ---
[facility] Anesthesia Checklist - Patient Identification Patient Identification: Arm Band - Structural Data Admitted From: Home Planned Operative Procedure/s: Tension Free Vaginal Taping Consent for Planned Operative Procedure(s) Verified: Yes Verified Documents: Surgical Consent, History and Physical - NPO Status Verified Time NPO: 00:00 - Additional verifications Anesthesia Reactions: No Hx Blood Transfusions: No Blood Transfusion Reaction: No - Airway Assessment C-Spine Mobility Assessed: Yes (mp2) TMJ Mobility Assessed: Yes Dentition: Good Dentition - Neurological Assessment Level of Consciousness: Awake, Alert - Anesthesia Plan Anesthesia Risk discussed: Yes Anesthesia Plan: Verified ASA Class: II Anesthesia Type: General [facility] History I have reviewed the patient's past medical history: Yes Medical History: Reports:: Anxiety, Depression, Gastroesophageal Reflux Disease(GERD), Heart Murmur Denies:: Cancer, Diabetes Mellitus Type 1, Diabetes Mellitus Type 2, Internal Pacemaker, Lung Disease, MRSA, Seizures *Have you ever received a pneumonia vaccine?: No *Have you received a flu vaccine this season?: Yes Other Medical History: Reports: Hypothyroidism, Thyroid Disease, Other. Denies: Blood Transfusion Reaction Anesthesia experience/problems:: nac Other Surgeries: Yes: Colonoscopy, EGD, Sinus Surgery. No: Pacemaker Amputation: No Fractures: No - *Social History Last grade of school completed: Advanced degree Smoking Status: Never smoker Alcohol Intake: current Alcohol Intake Frequency:: holidays/special occasions only Substance Use Type: denies use *Occupational Status:: employed Housing: house Household Members: spouse *Travel in the last 8 weeks: None - Psychiatric History Pschychiatric History:: Reports:: Anxiety, Depression Family Hx:: No significant family history
--- NOTE | 2021-04-27 08:22 | HMH.OPNOTE ---
Date of procedure: 04/27/21 Pre-op Diagnosis:: Genuine stress urinary incontinence Post-op Diagnosis:: Genuine stress urinary incontinence Procedure performed:: Tension-free vaginal tape Surgeon:: Pee Back MD AUDIO VISUAL AIDS DIRECTOR:: Robert Lee Anesthesia: LMA Estimated blood loss (mL): 150 Clinical Note:: She is a 50-year-old lady who complains of loss of urine with laughing coughing sneezing. This was demonstrated in my office. After having discussed the risks and benefits we elected perform a tension-free vaginal tape. Operative findings:: She had a normal-appearing bladder. Both ureteral orifices were seen. Operative note:: She was taken to the operating room where LMA anesthesia was found be adequate. She was prepped and draped in normal sterile fashion in the lithotomy position. The bladder was drained. Weighted speculum was placed in the vagina and I injected 20 cc of 1% Xylocaine with epinephrine along the urethra and under the pubic rami bilaterally. I then injected 60 cc of 0.5% ropivacaine along the trocar paths in the space of Retzius with a spinal needle from above. I then grasped the vaginal mucosa with an Allis clamp just below the urethra and then again approximately 3 cm along. Made an incision with knife. I then grasped the edges of the vaginal mucosa using Metzenbaum scissors dissected out laterally to each pubic rami. I then inserted a catheter in the bladder with an obturator. I pulled it to its ipsilateral side and placed the left side of the tape. I went under the pubic rami, through the urogenital diaphragm and through the space of Retzius. I then passed the catheter out through the skin. Then inspected the bladder with a 70 degree cystoscope. There is no evidence of tape within the bladder. I then pulled the tape through to the midline. The bladder was then drained and once again the obturator was placed within the urethra and pulled to its ipsilateral side. I then placed the right side of the tape in the same fashion as the left side. Once again the bladder was inspected with a 70 degree cystoscope. There was no evidence of tape within the bladder. I then placed a packing forcep under the tape and removed his outer sheath. Once again I tested for attention by pushing on the bladder from above. There was no evidence of leakage. The tape was loose. I then cut the tape off at the level of the skin and tented out the skin. The vaginal mucosa was then closed using interrupted 2-0 Vicryl suture in a mattress fashion. The suprapubic incisions were closed with Dermabond. Sterile dressings were applied. The bladder was then drained. She tolerated procedure well and was taken to the recovery room in excellent condition. All sponge, instrument and needle counts were correct. The estimated blood loss was 150 cc. Condition: stable Disposition: PACU Specimens:: None Complications:: None
--- NOTE | 2021-04-27 08:29 | HMH.ANESI ---
[facility] Anesthesia Record Part I Intake, IV Amount: 1,000 Estimated blood loss (mL): 150 Urine output (mL): 0 Blood Pressure: 120/68 SaO2: 95 Pulse Rate: 84 Respiratory Rate: 16 Temperature: 97.7 F Patient is:: Drowsy, Stable Stable to PACU at:: 08:25
--- NOTE | 2021-04-27 10:08 | P.PN_ITS ---
[facility] Anesthesia Record Part II Discharge Time: 08:55 Destination: Surgical Day Care (OP Surgery) PACU nurse assessment reviewed?: Yes Patient Condition:: Good Anesthesia Complications:: None Swallowing reflex intact?: Yes Cyanosis?: No Blood Pressure: 121/72 Pulse Rate: 87 Temperature: 97.7 F Mental Status: Alert & Oriented Pain level:: 0 Nausea and/or vomitting:: None Intake, IV Amount: 0
[2021-04-27 11:37] LABS: Microscopic, Urine URINE MICROSCOPIC (MICROSCOPIC)
[2021-04-27 11:40] LABS: Appearance,Urine CLEAR (Clear); Bilirubin,Urine Negative (Negative); Blood, Urine 3+ (Negative); Color,Urine STRAW (Yellow); Glucose,Urine (UA) Negative (Negative); Ketones,Urine Negative (Negative); Leukocyte Esterase,Urine Negative (Negative); Nitrate,Urine Negative (Negative); PH,Urine 6.5 (5.0-8.5); Protein,Urine Negative (Negative); Specific Gravity, Urine <= 1.005 (1.005-1.030); Urobilinogen,Urine 0.2 EU/dl (0.2)
--- NOTE | 2021-04-27 11:45 | SUR.PHASEII ---
1030- nix cath inserted after 400 urine residual noted after voiding- anchored lot #[id number], exp 2022-01-07
[2021-04-27 11:48] LABS: Bacteria,Urine 1+ /lpf
== END 2021-04-27 11:00 | disposition home or self-care (01) ==
LOC: OR 06:12
PROVIDERS: PCP Internal Medicine Adolescent Medicine; Visit Provider Nurse Practitioner Obstetrics & Gynecology
PROC: (CPT 57288; principal; 2021-04-27 07:30)
DX: N39.3 Stress incontinence (female) (male) (principal); F41.9 Anxiety disorder, unspecified; F32.9 Major depressive disorder, single episode, unspecified; K21.9 Gastro-esophageal reflux disease without esophagitis; R01.1 Cardiac murmur, unspecified; E03.9 Hypothyroidism, unspecified; Z79.890 Hormone replacement therapy; Z79.899 Other long term (current) drug therapy; Z88.8 Allergy status to other drugs, medicaments and biological substances
CPT/HCPCS: 57288; 81001; 96374; C1771; J2405

== ENCOUNTER → 2021-07-02 14:35 | Outpatient (POV) | payer OTHER, SELFPAY | PROVIDERS: Visit Provider Nurse Practitioner Family | DX: Z00.00 Encounter for general adult medical examination without abnormal findings (principal) ==

== ENCOUNTER → 2021-08-27 09:41 | Outpatient (CLI) | payer OTHER, SELFPAY ==
[2021-08-27 10:11] LABS: Basophils # 0.1 K/mm3 (0-0.2); Basophils % 0.9 % (0.1-2.0); Eosinophils # 0.1 K/mm3 (0.0-0.4); Eosinophils % 1.4 % (0.1-12.0); Hemoglobin 14.3 g/dL (12.2-16.2); Lymphocytes # 2.3 K/mm3 (0.7-4.5); Lymphocytes % 23.1 % (10-50); Mean Corpuscular HGB Conc 32.6 g/dL (31.8-35.4); Mean Corpuscular Hemoglobin 31.8 pg (27.0-31.2); Mean Corpuscular Volume 97.6 fl (81-99); Mean Platelet Volume 7.4 fl (7.4-10.4); Monocytes # 0.4 K/mm3 (0.1-1.0); Monocytes % 4.3 % (1.7-9.3); Neutrophils % 70.3 % (37.0-80.0); Platelet Count 302 K/mm3 (142-424); Red Blood Count 4.51 M/mm3 (4.20-5.40); Red Cell Distribution Width 13.2 % (11.5-17.5); White Blood Count 9.9 K/mm3 (4.8-10.8)
--- NOTE | 2021-08-27 10:13 | ECG_ITS ---
APPROVED REPORT Exam: Resting ECG HR:76 bpm ECG Measurements Heart Rate 76 AXES WA 144 P 68 QRSd 72 QRS 63 QT 350 T 57 QTc 393 Conclusion Normal sinus rhythm Normal ECG Electronically signed by : Oliver Castaneda MD 08/27/2021 17:57:50
[2021-08-27 10:47] LABS: Anion Gap 12.1 mEq/L (5-15); Blood Urea Nitrogen 11 mg/dl (7-17); Calcium 8.8 mg/dl (8.4-10.2); Carbon Dioxide 30 mmol/L (22.0-30.0); Chloride 101 mmol/L (98-107); Estimated Glomerular Filt Rate 75 ml/min (>60); GFR (African American) 91 ML/MIN (>60); Glucose 102 mg/dl (74-100); Potassium 4.1 mmoL/L (3.5-5.1); Sodium 139 mmol/L (136-145)
[2021-08-27 11:03] LABS: Troponin I < 0.01 ng/ml (0.00-0.034)
== END ==
PROVIDERS: Visit Provider Urology
DX: R07.89 Other chest pain (principal)
CPT/HCPCS: 36415; 80048; 84484; 85025; 93005

== ENCOUNTER → 2021-10-09 12:54 | Outpatient (CLI) | payer OTHER, SELFPAY | PROVIDERS: Visit Provider Nurse Practitioner Family | DX: J02.9 Acute pharyngitis, unspecified (principal); B95.8 Unspecified staphylococcus as the cause of diseases classified elsewhere | CPT/HCPCS: 87070; 87077; 87186 ==

== ENCOUNTER → 2021-10-09 16:04 | Outpatient (CLI) | payer OTHER, SELFPAY ==
[2021-10-09 16:15] LABS: Coronavirus 19, PCR Not Detected (NotDetected); Influenza A, PCR Not Detected (NotDetected); Influenza B, PCR Not Detected (NotDetected)
== END ==
PROVIDERS: PCP Internal Medicine Adolescent Medicine; Visit Provider Nurse Practitioner
DX: Z20.822 Contact with and (suspected) exposure to COVID-19 (principal)
CPT/HCPCS: C9803; U0003; U0005

== ENCOUNTER → 2021-10-29 19:05 | Outpatient (CLI) | payer OTHER, SELFPAY | PROVIDERS: PCP Internal Medicine Adolescent Medicine; Visit Provider Nurse Practitioner | DX: Z20.822 Contact with and (suspected) exposure to COVID-19 (principal) | CPT/HCPCS: C9803; U0003; U0005 ==

== ENCOUNTER 2021-11-01 16:45 | Emergency (ER) | payer OTHER, SELFPAY ==
[2021-11-01 18:10] VITALS: BP 122/77; PULSE 85; RESP 16; TEMP 36.6; O2SAT 99; BMI 30.2
--- NOTE | 2021-11-01 18:12 | HMH.EDUTC ---
[facility] Disposition Clinical Impression: Strep throat, MRSA (methicillin resistant staph aureus) culture positive Acute pharyngitis Qualifiers: Pharyngitis/tonsillitis etiology: unspecified etiology Qualified Code(s): J02.9 - Acute pharyngitis, unspecified Disposition: Home, Self-Care Condition on Discharge: Good Instructions: Strep Throat, DI for Strep Throat Additional Instructions: Finish the z-pack that you are already on. Take the steroids as directed. Follow up with your primary care physician regarding your throat culture. Take tylenol or ibuprofen for pain or fever. GO TO THE ER FOR ANY WORSENING SYMPTOMS Throw your tooth brush away and get a new one. Prescriptions: methylPREDNISolone [Medrol] 4 mg PO DIRECTED 6 Days #21 packet Transmission Status: Received by [id number] Referrals: Oliver Castaneda MD [Primary Care Provider] - Forms: Work/School Release Time of Disposition: 19:21 Medical Decision Making - Medical Records Medical records reviewed: No: I reviewed the patient's medical records. - Osito Inquiry Pt receiving controlled substance: No Vital Signs: 11/01/21 18:10 11/01/21 18:41 Temperature 98 F 98 F Temperature Source Oral Pulse Rate 85 Pulse Rate [Left] 85 Respiratory Rate 16 16 Blood Pressure 122/77 Blood Pressure [Right Arm] 122/77 Blood Pressure Mean [Right Arm] 92 02 Sat by Pulse Oximetry 99 - Lab Data Lab results reviewed: Yes: I reviewed the patient's lab results. Lab Results 11/01/21 18:09: Strep Scn Rapid [facility] Positive A 11/01/21 18:09: Influenza Type A Ag Negative, Influenza Type B Ag Negative Orders (Tests/Meds): ED MEDICATIONS Discontinued Medications Generic Name Dose Route Start Last Admin Trade Name Freq PRN Reason Stop Dose Admin Penicillin G Benzathine 1,200,000 unit 11/01/21 19:02 11/01/21 19:02 Penicillin G Benzathine 1,200,000 Units/2ml Syringe IM 11/01/21 19:03 1,200,000 unit ONCE ONE Administration [facility] HPI - General Stated complaint: covid symptoms Time Seen by Provider: 11/01/21 18:12 - History of Present Illness Provider Complaint: She is here with complaints of body aches and feeling bad for the past 2 days. She had strep throat around 3 weeks ago and she was treated for that and got better. Then her symptoms returned so she followed up with her pcp and had a throat culture that showed MRSA in her throat. She was treated with an antibiotic that was probably clindamycin for that. She never did get completely back to normal, but she did start to feel better. Then her current symptoms began. - Related Data Home Medications Medication Instructions Recorded Confirmed Cetirizine HCl [Zyrtec] 10 mg PO DAILY 12/23/17 09/13/21 levothyroxine 75 mcg tablet 75 mcg PO DAILY 09/29/19 09/13/21 Melatonin 10 mg PO HS 10/22/19 09/13/21 psyllium husk 6 gram/6 gram oral 6 g PO DAILY 11/08/19 09/13/21 powder polyethylene glycol 3350 17 17 g PO DAILY g 01/24/20 09/13/21 gram/dose oral powder Pantoprazole Sodium [Protonix 40mg 40 mg PO DAILY 03/15/21 09/13/21 tablet] azelastine 137 mcg (0.1 %) nasal 137 mcg INTRANASAL DAILY ml 04/19/21 09/13/21 spray aerosol Previous Rx's Medication Instructions Recorded buspirone 10 mg tablet 10 mg PO BID #60 tab 09/13/21 lorazepam 1 mg tablet 1 mg PO BID PRN #60 tab 09/13/21 vilazodone 40 mg tablet 40 mg PO DAILY #30 tab 09/13/21 Prempro 0.625 mg-2.5 mg tablet 1 tab PO DAILY #84 tab NS 09/19/21 estradiol 0.05 mg-norethindrone 1 patch TOPICAL .COMPLEX #8 each 10/08/21 0.25 mg/24 hr semiwkly transderm patch methylPREDNISolone [Medrol] 4 mg PO DIRECTED 6 Days #21 11/01/21 packet Allergies Allergy/AdvReac Type Severity Reaction Status Date / Time cefaclor Allergy Intermediate I-RASH Verified 09/13/21 08:26 [facility] History - Hepatitis A Screen Attestation statement:: This patient has been screened for Hepatitis
[2021-11-01 18:16] LABS: UTC Strep Screen (Rapid) Positive (Negative)
[2021-11-01 18:31] LABS: UTC Influenza A Antigen Negative (Negative); UTC Influenza B Antigen Negative (Negative)
[2021-11-01 18:41] VITALS: BP 122/77; PULSE 85; RESP 16; TEMP 36.6
== END 2021-11-01 19:31 | disposition home or self-care (01) ==
PROVIDERS: Emergency Provider Nurse Practitioner Family; PCP Internal Medicine Adolescent Medicine
DX: J02.0 Streptococcal pharyngitis (principal); F41.8 Other specified anxiety disorders; K21.9 Gastro-esophageal reflux disease without esophagitis; R01.1 Cardiac murmur, unspecified
CPT/HCPCS: 87804; 87880; 96372; 99202; G0463; J0561

== ENCOUNTER → 2021-11-05 11:28 | Outpatient (CLI) | payer OTHER, SELFPAY ==
--- NOTE | 2021-11-05 11:32 | XR_ITS ---
PROCEDURE: XR CHEST 2V CLINICAL HISTORY: SOB COMPARISON: CR XR CHEST 2V from 04/04/2020 CR XR CHEST 2V from 02/27/2021 FINDINGS: The cardiomediastinal silhouette and pulmonary vascularity are within normal limits. There are faint increased markings in the right infrahilar region medially which could be due to a developing area patchy infiltrate. Follow-up may confirm. The remaining lungs are clear. No acute bony abnormalities. IMPRESSION: Possible faint infiltrate/pneumonia in the right infrahilar region. Dictated by: Leonardo Canales MD 11/05/2021 12:13 Leonardo Canales MD in OV 11/05/2021 12:13
[2021-11-05 11:52] LABS: Adenovirus F 40/41, stool Not Detected (NotDetected); Astrovirus Not Detected (NotDetected); Campylobacter Not Detected (NotDetected); Clostridium Difficile A/B, PCR Not Detected (NotDetected); Cryptosporidium Not Detected (NotDetected); Cyclospora Cayetanesis Not Detected (NotDetected); Entamoeba histolytica Not Detected (NotDetected); Enteroaggregative E coli Not Detected (NotDetected); Enteropathogenic E coli Not Detected (NotDetected); Enterotoxigenic E coli Not Detected (NotDetected); Giardia lamblia Not Detected (NotDetected); Norovirus Not Detected (NotDetected); Plesimonas Shigalloides, PCR Not Detected (NotDetected); Rotavirus A Not Detected (NotDetected); Salmonella, PCR Not Detected (NotDetected); Sapovirus Not Detected (NotDetected); Shiga-like toxin E coli Not Detected (NotDetected); Shigella Enterovasive E coli Not Detected (NotDetected); Vibrio Cholerae Not Detected (NotDetected); Vibrio, PCR Not Detected (NotDetected); Yersinia Entercolitica, PCR Not Detected (NotDetected)
[2021-11-05 12:12] LABS: Basophils # 0.1 K/mm3 (0-0.2); Basophils % 1.1 % (0.1-2.0); Eosinophils # 0.1 K/mm3 (0.0-0.4); Eosinophils % 0.8 % (0.1-12.0); Hematocrit 45.9 % (37.0-47.0); Hemoglobin 14.9 g/dL (12.2-16.2); Lymphocytes # 2.3 K/mm3 (0.7-4.5); Lymphocytes % 22.7 % (10-50); Mean Corpuscular HGB Conc 32.5 g/dL (31.8-35.4); Mean Corpuscular Hemoglobin 31.4 pg (27.0-31.2); Mean Corpuscular Volume 96.4 fl (81-99); Mean Platelet Volume 7.6 fl (7.4-10.4); Monocytes # 0.5 K/mm3 (0.1-1.0); Monocytes % 4.5 % (1.7-9.3); Neutrophils # 7.1 K/mm3 (1.8-7.8); Neutrophils % 70.9 % (37.0-80.0); Platelet Count 367 K/mm3 (142-424); Red Blood Count 4.77 M/mm3 (4.20-5.40); Red Cell Distribution Width 13.8 % (11.5-17.5); White Blood Count 10.1 K/mm3 (4.8-10.8)
[2021-11-05 13:05] LABS: Alanine Aminotransferase 19 U/L (12-78); Albumin Level 4.4 g/dl (3.5-5.0); Albumin/Globulin Ratio 1.3 (1.1-1.8); Alkaline Phosphatase 67 U/L (38-126); Aspartate Amino Transferase 31 U/L (14-36); Bilirubin,Total 0.4 mg/dl (0.2-1.3); Blood Urea Nitrogen 11 mg/dl (7-17); Calcium 9.4 mg/dl (8.4-10.2); Carbon Dioxide 29 mmol/L (22.0-30.0); Chloride 101 mmol/L (98-107); Estimated Glomerular Filt Rate 75 ml/min (>60); GFR (African American) 91 ML/MIN (>60); Globulin 3.5 g/dL (1.3-3.2); Glucose 103 mg/dl (74-100); Sodium 138 mmol/L (136-145); Total Protein,Serum 7.9 g/dl (6.3-8.2)
[2021-11-05 14:02] LABS: Anion Gap 11.9 mEq/L (5-15); Potassium 3.9 mmoL/L (3.5-5.1)
== END ==
PROVIDERS: PCP Nurse Practitioner Family; Visit Provider Nurse Practitioner Family
DX: R06.02 Shortness of breath (principal); R19.5 Other fecal abnormalities
CPT/HCPCS: 36415; 71046; 80053; 85025; 87070; 87205; 87507

== ENCOUNTER → 2021-11-21 16:33 | Outpatient (CLI) | payer OTHER, SELFPAY | PROVIDERS: PCP Internal Medicine Adolescent Medicine; Visit Provider Internal Medicine Adolescent Medicine | DX: J02.9 Acute pharyngitis, unspecified (principal) | CPT/HCPCS: 87070 ==

== ENCOUNTER → 2021-12-04 09:36 | Outpatient (CLI) | payer OTHER, SELFPAY ==
[2021-12-04 10:44] LABS: Basophils # 0.1 K/mm3 (0-0.2); Basophils % 1.9 % (0.1-2.0); Eosinophils # 0.1 K/mm3 (0.0-0.4); Eosinophils % 1.2 % (0.1-12.0); Hemoglobin 14.5 g/dL (12.2-16.2); Lymphocytes # 1.9 K/mm3 (0.7-4.5); Lymphocytes % 28.7 % (10-50); Mean Corpuscular Hemoglobin 32.2 pg (27.0-31.2); Mean Corpuscular Volume 97.5 fl (81-99); Mean Platelet Volume 7.5 fl (7.4-10.4); Monocytes # 0.3 K/mm3 (0.1-1.0); Monocytes % 4.1 % (1.7-9.3); Neutrophils # 4.3 K/mm3 (1.8-7.8); Neutrophils % 64.1 % (37.0-80.0); Platelet Count 323 K/mm3 (142-424); Red Blood Count 4.51 M/mm3 (4.20-5.40); Red Cell Distribution Width 14.1 % (11.5-17.5); White Blood Count 6.7 K/mm3 (4.8-10.8)
[2021-12-04 11:08] LABS: Chloride 101 mmol/L (98-107); Potassium 4.7 mmoL/L (3.5-5.1); Sodium 136 mmol/L (136-145)
[2021-12-04 11:11] LABS: Anion Gap 13.7 mEq/L (5-15); Blood Urea Nitrogen 11 mg/dl (7-17); Calcium 9.2 mg/dl (8.4-10.2); Carbon Dioxide 26 mmol/L (22.0-30.0); Estimated Glomerular Filt Rate 52 ml/min (>60); GFR (African American) 63 ML/MIN (>60); Glucose 110 mg/dl (74-100)
[2021-12-04 11:29] LABS: Troponin I < 0.01 ng/ml (0.00-0.034)
[2021-12-04 11:45] LABS: Thyroid Stimulating Hormone 2.62 uIU/mL (0.465-4.68)
--- NOTE | 2021-12-04 13:57 | CA_ITS ---
APPROVED REPORT EXAM: Comprehensive 2D, Doppler, and color-flow Echocardiogram Colleter: Fartun Leggett CRT Ht: 5 ft 1 in Wt: 158lbs BSA: 1.71 BP: 132/78 mmHg Indications: Chest Pain, Murmur, Shortness of Breath, Palpitations, Fatigue 2D Dimensions LVOT 1.88 cm (M/F) 1.5-2.5 LA Volume 13.80 mL LA Volume Index 8.10 mL/m2 (M/F) 16-34 M-Mode Dimensions RVDd 2.00 cm (0.9-2.6) LA Diam 2.40 cm (1.9-4.0) LVDd 4.69 cm (3.5-5.7) Ao Diam 3.00 cm (2.0-3.7) LVDs 3.14 cm (3.5-5.7) IVSd 1.18 cm (0.6-1.1) PWd 0.77 cm (0.6-1.1) EF (Teich) 61.60% FS 33.00% EDV (Teich) 101.90 mL TAPSE 1.72 (<1.7) ESV (Teich) 39.10 mL LV Diastology E Decel Time 177.00 (160-240 msec) E/A Ratio 1.10 MED E' 10.10 (< 7 cm/sec) MED A' 10.10 cm/s E'/MED E' Ratio 8.07 (>14) LAT E' 14.60 (<10 cm/sec) LAT A' 8.00 cm/s E/LAT E' Ratio 5.58 (>14) Aortic Valve AO Peak GR. 7.10 mmHg Mitral Valve MV A Velocity 74.00 (40-130 cm/s) E/A Ratio 1.10 MV Decel. Time 177.00 (160-240 ms) Pulmonary Valve PV Peak Velocity 95.00 (50-150 cm/s) Tricuspid Valve TR P. Velocity 185.00 cm/s RAP Estimate 10.00 mmHg RVSP 23.70 mmHg Left Ventricle Left atrium is normal size, left ventricle is normal size, there is no concentric left ventricular hypertrophy, visually estimated ejection fraction 55% with no regional wall motion abnormality, diastolic parameters are within normal range. Right Ventricle Right atrium and right ventricle are normal size and contractility. Aortic Valve Aortic valve is minimally thickened and fibrosed, there is no aortic stenosis or aortic insufficiency. Mitral Valve Mitral valve grossly normal, there is trace mitral regurgitation. Tricuspid Valve Tricuspid valve grossly normal, there is trace tricuspid regurgitation, tricuspid regurgitation jet velocity is inadequate for calculation of the right ventricular systolic pressure. Pulmonic Valve Pulmonic valve is poorly visualized. Great Vessels Aortic root is normal size. Inferior vena cava normal size with normal inspiratory collapse. Pericardium No significant pericardial effusion noted. Conclusion 1. Normal left ventricular size, preserved left ventricular systolic function, visually estimated ejection fraction 55% with no regional wall motion abnormality, diastolic parameters are within normal range. 2. Trace mitral and tricuspid regurgitation. 3. No significant pericardial effusion. 4. Inferior vena cava is normal size with normal inspiratory collapse. Electronically signed by : Luke Mares MD 12/04/2021 20:31:35
== END ==
PROVIDERS: PCP Internal Medicine Adolescent Medicine; Visit Provider Urology
DX: R06.09 Other forms of dyspnea (principal); R07.9 Chest pain, unspecified; R00.2 Palpitations; R06.00 Dyspnea, unspecified
CPT/HCPCS: 36415; 80048; 84439; 84443; 84484; 85025; 93270; 93306

== ENCOUNTER → 2021-12-07 06:33 | Outpatient (CLI) | payer OTHER, SELFPAY ==
--- NOTE | 2021-12-07 06:34 | NM_ITS ---
APPROVED REPORT Exam: Nuclear Stress Test Indication: chest pain..short of breath..fatigue Patient Location: Outpatient Stress Tech: Rebeca SOLIS Tech:Jessica Gallegos DANIAMoustapha RT(R)(N) Ht: 5 ft 0 in Wt: 158 lbs Bra Size: 36b HR: 71 bpm BP: 126/73 mmHg BSA: 1.69 m2 BMI: 28.3 History: chest pain..short of breath..fatigue Procedure: Patient exercised on Henry protocol 9:01 minutes and sec, resting heart rate 71 bpm, resting blood pressure 126/73 mmHg, with exercise maximum heart rate achived was 157 bpm which is 94 % of the maximum predicted heart rate and blood pressure was 152/84 mmHg. Patient has good exercise capacity, achieved 10.1 METs of workload on treadmill, the blood pressure response to exercise was Adequate. Electrocardiogram Resting electrocardiogram shows sinus rhythm, with exercise there is less than 1.[address] segment depression noted from the baseline EKG. The EKG portion of the exercise Myoview is negative for ischemia. Cardiac Stress and Resting SPECT Images: Cardiac Stress and Resting SPECT images were obtained using technetium 99m Myoview 32.5 mCi stress and 10.37 mCi at rest. Gated SPECT for analysis of segmental wall motion and calculation of the ejection fraction also done, prone images were also obtained. Cardiac stress and rest SPECT may show uniform myocardial activity without segmental perfusion abnormality, computer derived ejection fraction is 65% with no regional wall motion abnormality, right ventricle is normal size and contractility. Conclusion: 1. The EKG portion of the exercise Myoview is negative for ischemia, patient has good exercise capacity achieved 10.1 METs of workload on treadmill, the blood pressure response to exercise the adequate, chest pressure was noted during the study. 2. No scintigraphic evidence of reversible ischemia seen, computer derived ejection fraction is 65% with no regional wall motion abnormality, right ventricle is normal size and contractility. 3. Normal exercise Myoview study although chest pressure was reported in this study. Electronically signed by : Luke Mares MD 12/07/2021 13:09:33
--- NOTE | 2021-12-07 06:34 | CA_ITS ---
APPROVED REPORT Exam: Exercise Treadmill Technologist: Rebeca Hernandez, Ht: 5 ft 1 in Wt: 158 lbs BSA: 1.71 m2 HR: 71 bpm BP: 126/73 mmHg Medical History Medications: Lorazepam,,,,, Synthroid,,,,, Buspirone,,,,, MeLATONIN,,,,, CetIRIZINE,,,,, AZelastine,,,,, PolyethYLENE,,,,, PSYLLIUM,,,,, PantoprazLE,,,,, Viibryd,,,,, Combi patch,,,,, GlYcol,,,,, Stress Test Details Test: Criselda HR Resting HR: 92 bpm Max Heart Rate (APMHR): 167 bpm Max HR Achieved: 157 bpm Target HR (85% APMHR): 142 bpm % of APMHR: 94 Recovery HR: 115 bpm BP Resting BP: 117/76 mmHg Max BP: 152/84 mmHg Recovery BP: 152.0/84.0 mmHg ECG Clinical Exercise duration: 09:01 min Highest Stage Achieved: Exercise capacity: 10.1 METs Stress ECG Conclusion During criselda protocol pt walked for 9 minutes. Chest pressure noted. No arrhythmias noted. Less than 1.5mm ST segment changes. Test Summary REST . . . . . . . Sitting REST 12:43 0.0 0.0 92 . 117/ 76 . . Stage 1 01:00 10.0 1.7 99 . . . . Stage 1 02:00 10.0 1.7 100 . . . . Stage 1 03:00 10.0 1.7 107 . 128/ 70 . . Stage 2 01:00 12.0 2.5 110 . . . . Stage 2 02:00 12.0 2.5 120 . . . . Stage 2 03:00 12.0 2.5 128 . 132/ 84 . . Stage 3 01:00 14.0 3.4 142 . . . . Stage 3 02:00 14.0 3.4 146 . . . . Stage 3 03:00 14.0 3.4 152 . . . . Stage 4 00:01 16.0 4.2 152 . . . Stop exercise at 09:01 RECOVERY 01:00 0.0 0.0 138 . . . . RECOVERY 02:00 0.0 0.0 121 . 152/ 84 . . RECOVERY 03:00 0.0 0.0 104 . 152/ 84 . . RECOVERY 04:00 0.0 0.0 112 . 132/ 82 . . RECOVERY 04:50 0.0 0.0 110 . 131/ 80 . . Electronically signed by : Luke Mares MD 12/07/2021 13:03:41
== END ==
PROVIDERS: PCP Internal Medicine Adolescent Medicine; Visit Provider Urology
DX: R06.00 Dyspnea, unspecified (principal); R07.9 Chest pain, unspecified
CPT/HCPCS: 78452; 93017; A9502

== ENCOUNTER → 2021-12-11 15:01 | Outpatient (POV) | payer OTHER, SELFPAY | PROVIDERS: Visit Provider Dermatology | DX: Z00.00 Encounter for general adult medical examination without abnormal findings (principal) ==

== ENCOUNTER → 2021-12-11 15:01 | Outpatient (POV) | payer OTHER, SELFPAY | PROVIDERS: Visit Provider Dermatology | DX: Z00.00 Encounter for general adult medical examination without abnormal findings (principal) ==

== ENCOUNTER → 2022-01-22 10:02 | Outpatient (CLI) | payer OTHER, SELFPAY ==
--- NOTE | 2022-01-22 10:03 | MM_ITS ---
PROCEDURE INFORMATION: Exam: MG Bilateral Screening 3D Mammography Exam date and time: 01/22/2022 10:02 AM Age: 51 years old Clinical indication: Encounter for screening mammogram for malignant neoplasm of breast. No family history of breast cancer. TECHNIQUE: Imaging protocol: Bilateral Screening tomosynthesis and 2D mammography including computer-aided detection (CAD) when performed. COMPARISON: 1. MG MM DIG SCREENING MAMM BI W/CAD 12/14/2020 3:33 PM 2. MG MM DIG MAMM BI DX W/CAD 11/30/2019 2:07 PM 3. MG DIG MAMM-SCREEN MURIEL 05/20/2019 11:30 AM 4. MG DMSB DIG MAMM-SCREEN MURIEL W/CAD 07/04/2017 2:03 PM FINDINGS: MAMMOGRAPHY: Breast composition: The breast tissue is composed of scattered areas of fibroglandular density. Mass: None. Architectural distortion: None. Calcifications: No suspicious calcifications. Asymmetric density: None. Skin thickening: None. Axillary adenopathy: None. IMPRESSION: No mammographic evidence of malignancy. Annual screening is recommended unless otherwise clinically indicated. ASSESSMENT: BI-RADS Category 1: Negative
== END ==
PROVIDERS: PCP Internal Medicine Adolescent Medicine; Visit Provider Nurse Practitioner Obstetrics & Gynecology
DX: Z12.31 Encounter for screening mammogram for malignant neoplasm of breast (principal)
CPT/HCPCS: 77063; 77067

== ENCOUNTER → 2022-02-01 10:29 | Outpatient (CLI) | payer OTHER, SELFPAY | PROVIDERS: PCP Internal Medicine Adolescent Medicine; Visit Provider Otolaryngology | DX: K12.2 Cellulitis and abscess of mouth (principal); R06.83 Snoring; G47.33 Obstructive sleep apnea (adult) (pediatric) | CPT/HCPCS: 95806 ==

== ENCOUNTER → 2022-02-07 10:33 | Outpatient (CLI) | payer OTHER, SELFPAY ==
--- NOTE | 2022-02-07 10:42 | US_ITS ---
FINAL REPORT CLINICAL HISTORY: thyroid nodule-- prev 18 COMPARISON: January 05, 2018 FINDINGS: THYROID ULTRASOUND Sonographic images of the thyroid was obtained. The right lobe of the thyroid measures 3.4 x 1.1 x 0.8 cm. The left lobe of the thyroid measures 2.7 x 1.0 x 0.9 cm. The isthmus measures 4 mm. The thyroid has a heterogeneous echotexture. There is a nodule on the left side of the isthmus measuring 8 x 8 x 4 mm and was previously measured 9 x 8 x 4 mm. This is visually stable, TI-RADS 4. There is a right lobe nodule measuring 6 x 6 x 5 mm and was previously measured 8 x 7 x 8 mm, TI-RADS 3. This is visually somewhat smaller. No new mass or nodule is identified. IMPRESSION: Visually smaller right lobe nodule. Otherwise stable exam. Reviewed, Interpreted and Dictated by Shakir Soliz III, MD Transcribed by Denise Bills Authenticated by Shakir Soliz III, MD on 02/07/2022 01:48:37 PM [facility]
== END ==
PROVIDERS: PCP Internal Medicine Adolescent Medicine; Visit Provider Otolaryngology
DX: E04.1 Nontoxic single thyroid nodule (principal)
CPT/HCPCS: 76536

== ENCOUNTER → 2022-10-18 09:39 | Outpatient (CLI) | payer OTHER, SELFPAY ==
--- NOTE | 2022-10-18 11:48 | US_ITS ---
FINAL REPORT CLINICAL HISTORY: . FINDINGS: Sonographic images of the right upper quadrant were obtained. The pancreas is partially obscured.The liver has an unremarkable appearance. There is a probable small polyp in the posterior gallbladder wall. No well-defined stone is identified. There is gallbladder wall thickening measuring 3 mm. There is no evidence of biliary ductal dilatation.The common duct measures 3 mm. Limited images of the right kidney are unremarkable. IMPRESSION: Probable polyp in the posterior gallbladder wall with gallbladder wall thickening. Reviewed, Interpreted and Dictated by Shakir Soliz III, MD Transcribed by Gaby Clay Authenticated and [facility]
== END ==
PROVIDERS: PCP Internal Medicine Adolescent Medicine; Visit Provider Internal Medicine Adolescent Medicine
DX: R10.11 Right upper quadrant pain (principal)
CPT/HCPCS: 76705

== ENCOUNTER → 2022-10-29 10:14 | Outpatient (CLI) | payer OTHER, SELFPAY ==
--- NOTE | 2022-10-29 10:17 | NM_ITS ---
FINAL REPORT CLINICAL HISTORY: ruq pain 10:20am 8.71 mci tc choletec 1.5 mcg cck moderate pain with cck FINDINGS: Sequential anterior projection images of the abdomen were obtained after the intravenous injection of 8.71 mCi technetium 99m Choletec. There is normal uptake of radiotracer by the liver. The bile ducts are visualized by 5 minutes. Gallbladder activity is seen by 15 minutes. Bowel activity is noted by 5 minutes. After 1 hour, 1.5 ?g of CCK was injected intravenously for calculation of gallbladder ejection fraction. The gallbladder ejection fraction is 17 %, which is abnormally low but nonspecific. IMPRESSION: Abnormally low but nonspecific gallbladder ejection fraction which can be seen with chronic cholecystitis. Reviewed, Interpreted and Dictated by Shakir Soliz III, MD Transcribed by Gaby Caly Authenticated and [facility]
== END ==
PROVIDERS: PCP Internal Medicine Adolescent Medicine; Visit Provider Internal Medicine Adolescent Medicine
DX: R10.11 Right upper quadrant pain (principal)
CPT/HCPCS: 78227; A9537; J2805

== ENCOUNTER → 2022-11-14 11:16 | Outpatient (CLI) | payer OTHER, SELFPAY ==
[2022-11-14 12:11] LABS: Basophils # 0.1 K/mm3 (0-0.2); Basophils % 0.8 % (0.1-2.0); Eosinophils # 0.1 K/mm3 (0.0-0.4); Eosinophils % 0.7 % (0.1-12.0); Hematocrit 45.7 % (37.0-47.0); Hemoglobin 14.8 g/dL (12.2-16.2); Lymphocytes # 2.5 K/mm3 (0.7-4.5); Lymphocytes % 15.5 % (10-50); Mean Corpuscular HGB Conc 32.4 g/dL (31.8-35.4); Mean Corpuscular Hemoglobin 31.4 pg (27.0-31.2); Mean Platelet Volume 7.8 fl (7.4-10.4); Monocytes # 0.5 K/mm3 (0.1-1.0); Monocytes % 2.9 % (1.7-9.3); Neutrophils # 12.7 K/mm3 (1.8-7.8); Neutrophils % 80.1 % (37.0-80.0); Platelet Count 326 K/mm3 (142-424); Red Blood Count 4.71 M/mm3 (4.20-5.40); Red Cell Distribution Width 13.1 % (11.5-17.5); White Blood Count 15.8 K/mm3 (4.8-10.8)
[2022-11-14 12:18] LABS: MANUAL DIFFERENTIAL MANUAL DIFFERENTIAL (MANUAL DIFF)
[2022-11-14 12:38] LABS: Chloride 103 mmol/L (98-107); Potassium 4.3 mmoL/L (3.5-5.1); Sodium 138 mmol/L (136-145)
[2022-11-14 12:41] LABS: Alanine Aminotransferase 25 U/L (12-78); Albumin Level 4.2 g/dl (3.5-5.0); Albumin/Globulin Ratio 1.4 (1.1-1.8); Alkaline Phosphatase 77 U/L (38-126); Anion Gap 13.3 mEq/L (5-15); Aspartate Amino Transferase 35 U/L (14-36); Bilirubin,Total 0.4 mg/dl (0.2-1.3); Blood Urea Nitrogen 14 mg/dl (7-17); Calcium 8.7 mg/dl (8.4-10.2); Carbon Dioxide 26 mmol/L (22.0-30.0); Estimated Glomerular Filt Rate 58 ml/min (>60); GFR (African American) 70 ML/MIN (>60); Globulin 3.1 g/dL (1.3-3.2); Glucose 98 mg/dl (74-100); Total Protein,Serum 7.3 g/dl (6.3-8.2)
[2022-11-14 12:58] LABS: Triiodothryronine (T3) Uptake 30 % (23.5-40.5)
[2022-11-14 12:59] LABS: T4 (Thyroxine) 9.9 ug/dl (5.53-11.0)
[2022-11-14 13:13] LABS: Thyroid Stimulating Hormone 0.77 uIU/mL (0.465-4.68)
[2022-11-14 14:29] LABS: Eosinophils % 1 % (0-3); Lymphocytes % 18 % (10-50); Monocytes % 1 % (2-9); Neutrophils % 80 % (42-76); Total Cells Counted 100
[2022-11-14 14:30] LABS: Platelet Estimate Normal; RBC Morphology Normal
== END ==
PROVIDERS: PCP Internal Medicine Adolescent Medicine; Visit Provider Internal Medicine Adolescent Medicine
DX: E03.9 Hypothyroidism, unspecified (principal)
CPT/HCPCS: 36415; 80053; 84436; 84443; 84479; 85007; 85025

== ENCOUNTER → 2022-11-20 09:43 | Outpatient (CLI) | payer OTHER, SELFPAY ==
[2022-11-20 09:37] LABS: Microscopic, Urine URINE MICROSCOPIC (MICROSCOPIC)
[2022-11-20 10:45] LABS: Basophils # 0.3 K/mm3 (0-0.2); Basophils % 2.7 % (0.1-2.0); Eosinophils # 0.1 K/mm3 (0.0-0.4); Eosinophils % 1.5 % (0.1-12.0); Hematocrit 45.7 % (37.0-47.0); Hemoglobin 14.5 g/dL (12.2-16.2); Lymphocytes # 1.9 K/mm3 (0.7-4.5); Lymphocytes % 20.3 % (10-50); Mean Corpuscular HGB Conc 31.7 g/dL (31.8-35.4); Mean Corpuscular Hemoglobin 31.4 pg (27.0-31.2); Mean Platelet Volume 8.2 fl (7.4-10.4); Monocytes # 0.4 K/mm3 (0.1-1.0); Monocytes % 4.6 % (1.7-9.3); Neutrophils # 6.6 K/mm3 (1.8-7.8); Neutrophils % 70.9 % (37.0-80.0); Platelet Count 331 K/mm3 (142-424); Red Blood Count 4.61 M/mm3 (4.20-5.40); Red Cell Distribution Width 13.2 % (11.5-17.5); White Blood Count 9.3 K/mm3 (4.8-10.8)
[2022-11-20 14:33] LABS: Appearance,Urine CLEAR (Clear); Bilirubin,Urine Negative (Negative); Blood, Urine 1+ (Negative); Color,Urine YELLOW (Yellow); Glucose,Urine (UA) Negative (Negative); Ketones,Urine Negative (Negative); Leukocyte Esterase,Urine Negative (Negative); Nitrate,Urine Negative (Negative); Protein,Urine Negative (Negative); Specific Gravity, Urine 1.025 (1.005-1.030); Urobilinogen,Urine 0.2 EU/dl (0.2)
[2022-11-20 14:48] LABS: RBC,Urine Occasional #/hpf (0-3); WBC,Urine Occasional #/hpf (0-3)
== END ==
PROVIDERS: PCP Internal Medicine Adolescent Medicine; Visit Provider Surgery
DX: K80.20 Calculus of gallbladder without cholecystitis without obstruction (principal)
CPT/HCPCS: 36415; 81001; 85025

== ENCOUNTER 2022-12-12 08:21 | Day surgery (SDC) | payer OTHER, SELFPAY ==
[2022-12-12] VITALS (12 sets, daily range): BP systolic 117–144; BP diastolic 61–88; PULSE 73–96; RESP 16–18; TEMP 36.5–43; O2SAT 91–98; BMI 30.2
--- NOTE | 2022-12-12 11:28 | EXP.ANES.CKL ---
[facility] Disclaimer: The information contained in this section may have been updated after the patient was seen, as this information can be updated by other users. Medical History (Updated 12/12/22 @ 08:53 by Mily Torres RN) Asthma COPD (chronic obstructive pulmonary disease) Generalized anxiety disorder History of cardiac murmur Hx of Nuzhat thyroiditis Panic disorder Sleep apnea Surgical History (Updated 12/12/22 @ 08:36 by Mily Torres RN) History of sinus surgery Family History (Updated 12/12/22 @ 08:39 by Mily Torres RN) Other Family history of acute heart failure Family history of cancer Lung cancer Social History (Updated 12/12/22 @ 08:39 by Mily Torres RN) Smoking Status: Never smoker second hand exposure: No alcohol intake: current substance use type: denies use current occupational status: employed Travel in the last 8 weeks: None household members: spouse housing: house number of children: 2 current occupation: [employer] current occupational exposures/hazards: No caffeine: Yes [facility] Anesthesia Checklist Patient Identification Patient Identification: Arm Band Structural Data Admitted From: Home Planned Operative Procedure/s: Laparoscopic Cholecystectomy Consent for Planned Operative Procedure(s) Verified: Yes Verified Documents: Surgical Consent and History and Physical NPO Status Verified Time NPO: 00:00 Additional verifications Anesthesia Reactions: No Hx Blood Transfusions: No Blood Transfusion Reaction: No Airway Assessment C-Spine Mobility Assessed: Yes TMJ Mobility Assessed: Yes Dentition: Good Dentition Neurological Assessment Level of Consciousness: Awake and Alert Anesthesia Plan Anesthesia Risk discussed: Yes Anesthesia Plan: Verified ASA Class: II Anesthesia Type: General
--- NOTE | 2022-12-12 12:23 | EXP.OP.NOTE ---
Date of procedure: 12/12/22 Pre-op Diagnosis:: Chronic cholecystitis Post-op Diagnosis:: Same Procedure performed:: Laparoscopic cholecystectomy Surgeon:: Caden Hylton MD TOP DYEING MACHINE LOADER:: Robert Lee Anesthesia: GETPilar Estimated blood loss (mL): 15 Operative findings:: Gallbladder distention Significant infundibular thickening Operative note:: After informed consent was obtained, the patient was taken to the operating room and placed in the supine position. General anesthesia was induced and the abdomen was prepped and draped in a sterile fashion. After infiltration with local anesthetic an infraumbilical incision was made. A Veress needle was placed in position. The abdomen was insufflated. A 5 mm optical trocar was placed in position. Under direct visualization, a 12 mm trocar was placed in the subxiphoid position and 2 additional 5 mm trocars were placed in the right upper quadrant. The gallbladder was elevated up and over the liver margin. The tissue around the cystic duct was carefully dissected. 3 clips were placed proximally and the duct was transected with harmonic vernon. Harmonic vernon were then utilized to dissect the gallbladder away from the liver margin with careful attention to the control of the cystic artery. The gallbladder was placed in a retrieval bag and removed through the subxiphoid trocar site. The right upper quadrant was thoroughly irrigated. No active bleeding or bile leak was noted. Fascia at the subxiphoid trocar site was reapproximated utilizing the NeoClose device. The remaining trocars were removed. All wounds were irrigated and skin was closed with 4-0 Monocryl in a subcuticular fashion. Steri-Strips were applied. The patient's anesthetic agents were reversed and extubation was completed prior to transfer to recovery in stable condition. Condition: stable Disposition: PACU Specimens:: Gallbladder and contents Complications:: No immediate
--- NOTE | 2022-12-12 12:27 | P.PNANES_ITS ---
[facility] Anesthesia Record Part I Anesthesia Record I Intake, IV Amount: 1,300 Estimated blood loss (mL): 10 Urine output (mL): 0 Blood Pressure: 144/66 SaO2: 91 Pulse Rate: 96 Respiratory Rate: 16 Temperature: 99.3 F Patient is:: Drowsy and Stable Stable to PACU at:: 12:25
--- NOTE | 2022-12-12 19:03 | P.PNANES_ITS ---
[facility] Anesthesia Record Part II Anesthesia Record Part II Discharge Time: 13:15 Destination: Surgical Day Care (OP Surgery) PACU nurse assessment reviewed?: Yes Patient Condition:: Good Anesthesia Complications:: None Swallowing reflex intact?: Yes Cyanosis?: No Blood Pressure: 122/69 Pulse Rate: 87 Temperature: 97.7 F Mental Status: Alert & Oriented Pain level:: 0 Nausea and/or vomitting:: Nauseated Intake, IV Amount: 0
== END 2022-12-12 13:55 | disposition home or self-care (01) ==
PROVIDERS: PCP Internal Medicine Adolescent Medicine; Visit Provider Surgery
PROC: 0FT44ZZ Resection of Gallbladder, Percutaneous Endoscopic Approach (ICD-10-PCS; CPT 47562; principal; 2022-12-12 10:00)
DX: K81.1 Chronic cholecystitis (principal); Z79.899 Other long term (current) drug therapy
CPT/HCPCS: 47562; 96374; J2405

== ENCOUNTER → 2023-01-31 13:49 | Outpatient (CLI) | payer OTHER, SELFPAY ==
--- NOTE | 2023-01-31 13:58 | MM_ITS ---
PROCEDURE INFORMATION: Exam: MG Bilateral Screening 3D Mammography Exam date and time: 01/31/2023 3:17 PM Age: 52 years old Clinical indication: Screening. No family history of breast cancer. TECHNIQUE: Imaging protocol: Bilateral Screening tomosynthesis and 2D mammography including computer-aided detection (CAD) when performed. COMPARISON: 1. MG MM DIG SCREENING MAMM BI W/CAD 01/22/2022 10:02 AM 2. MG MM DIG SCREENING MAMM BI W/CAD 12/14/2020 3:33 PM 3. MG MM DIG MAMM BI DX W/CAD 11/30/2019 2:07 PM 4. MG DIG MAMM-SCREEN MURIEL 05/20/2019 11:30 AM FINDINGS: MAMMOGRAPHY: Breast composition: There are scattered areas of fibroglandular density. Mass: None. Architectural distortion: None. Calcifications: No suspicious calcifications. Asymmetric density: None. Skin thickening: None. Axillary adenopathy: None. IMPRESSION: No mammographic evidence of malignancy. Annual screening is recommended unless otherwise clinically indicated. ASSESSMENT: BI-RADS Category 1: Negative
== END ==
PROVIDERS: PCP Internal Medicine Adolescent Medicine; Visit Provider Nurse Practitioner Obstetrics & Gynecology
DX: Z12.31 Encounter for screening mammogram for malignant neoplasm of breast (principal)
CPT/HCPCS: 77063; 77067

== ENCOUNTER → 2023-02-14 14:33 | Outpatient (POV) | payer OTHER, SELFPAY | PROVIDERS: Visit Provider Dermatology | DX: Z00.00 Encounter for general adult medical examination without abnormal findings (principal) ==

== ENCOUNTER → 2023-05-21 16:09 | Outpatient (CLI) | payer OTHER, SELFPAY | PROVIDERS: PCP Internal Medicine Adolescent Medicine; Visit Provider Nurse Practitioner | DX: E04.1 Nontoxic single thyroid nodule (principal) | CPT/HCPCS: 36415; 84443 ==

== ENCOUNTER → 2023-06-24 14:30 | Outpatient (CLI) | payer OTHER, SELFPAY ==
--- NOTE | 2023-06-24 14:33 | XR_ITS ---
FINAL REPORT CLINICAL HISTORY: left foot and burning FINDINGS: Left foot Three views were obtained. There is no acute fracture or dislocation. There are mild degenerative changes. Small plantar calcaneal spur is identified. No soft tissue abnormality is identified. IMPRESSION: No acute process. Reviewed, Interpreted and Dictated by Shakir Soliz III, MD Transcribed by Gaby Clay Authenticated and . [facility]
== END ==
PROVIDERS: PCP Internal Medicine Adolescent Medicine; Visit Provider Podiatrist
DX: M79.672 Pain in left foot (principal)
CPT/HCPCS: 73630

== ENCOUNTER 2024-03-22 09:58 | Outpatient (CLI) | payer OTHER, SELFPAY ==
[2024-03-23 08:36] LABS: CA 19-9 10 U/mL (0-35); CEA 1.9 ng/mL (0.0-4.7)
== END 2024-03-22 23:59 | disposition home or self-care (01) ==
LOC: LAB 09:58
PROVIDERS: PCP Internal Medicine Adolescent Medicine; Visit Provider Nurse Practitioner
DX: R10.13 Epigastric pain (principal); Z80.0 Family history of malignant neoplasm of digestive organs
CPT/HCPCS: 36415; 82378; 86301

== ENCOUNTER 2024-04-12 13:24 | Outpatient (CLI) | payer OTHER, SELFPAY ==
--- NOTE | 2024-04-12 13:26 | MM_ITS ---
PROCEDURE INFORMATION: Exam: MG Bilateral Screening 3D Mammography Exam date and time: 04/12/2024 1:11 PM Age: 53 years old Clinical indication: Screening examination TECHNIQUE: Imaging protocol: Bilateral Screening tomosynthesis and 2D mammography including computer-aided detection (CAD) when performed. COMPARISON: 1. MG MM DIG SCREENING MAMM BI W/CAD 01/31/2023 3:17 PM 2. MG MM DIG SCREENING MAMM BI W/CAD 01/22/2022 10:02 AM FINDINGS: MAMMOGRAPHY: Breast composition: There are scattered areas of fibroglandular density. Mass: None. Architectural distortion: None. Calcifications: No suspicious calcifications. Asymmetric density: None. Skin thickening: None. Axillary adenopathy: None. IMPRESSION: No mammographic evidence of malignancy. Annual screening is recommended unless otherwise clinically indicated. ASSESSMENT: BI-RADS Category 1: Negative
== END 2024-04-12 23:59 | disposition home or self-care (01) ==
LOC: RAD 13:24
PROVIDERS: PCP Internal Medicine Adolescent Medicine; Visit Provider Nurse Practitioner Obstetrics & Gynecology
DX: Z12.31 Encounter for screening mammogram for malignant neoplasm of breast (principal)
CPT/HCPCS: 77063; 77067

== ENCOUNTER 2024-04-20 09:17 | Outpatient (CLI) | payer OTHER, SELFPAY ==
[2024-04-20 09:55] LABS: Basophils # 0.1 K/mm3 (0-0.2); Eosinophils # 0.1 K/mm3 (0.0-0.4); Eosinophils % 1.1 % (0.1-12.0); Hematocrit 43.2 % (37.0-47.0); Hemoglobin 14.3 g/dL (12.2-16.2); Lymphocytes # 2.1 K/mm3 (0.7-4.5); Mean Corpuscular HGB Conc 33.2 g/dL (31.8-35.4); Mean Corpuscular Hemoglobin 32.4 pg (27.0-31.2); Mean Corpuscular Volume 97.6 fl (81-99); Mean Platelet Volume 8.1 fl (7.4-10.4); Monocytes # 0.3 K/mm3 (0.1-1.0); Monocytes % 4.1 % (1.7-9.3); Neutrophils # 3.8 K/mm3 (1.8-7.8); Neutrophils % 60.7 % (37.0-80.0); Platelet Count 252 K/mm3 (142-424); Red Blood Count 4.42 M/mm3 (4.20-5.40); Red Cell Distribution Width 13.4 % (11.5-17.5); White Blood Count 6.3 K/mm3 (4.8-10.8)
[2024-04-20 10:51] LABS: Chloride 106 mmol/L (98-107); Potassium 4.6 mmoL/L (3.5-5.1); Sodium 139 mmol/L (136-145)
[2024-04-20 10:53] LABS: Alanine Aminotransferase 21 U/L (12-78); Aspartate Amino Transferase 33 U/L (14-36); Blood Urea Nitrogen 17 mg/dl (7-17); Estimated Glomerular Filt Rate 52 ml/min (>60); GFR (African American) 62 ML/MIN (>60)
[2024-04-20 10:54] LABS: Albumin/Globulin Ratio 1.4 (1.1-1.8); Alkaline Phosphatase 67 U/L (38-126); Anion Gap 9.6 mEq/L (5-15); Bilirubin,Total 0.3 mg/dl (0.2-1.3); Calcium 9.4 mg/dl (8.4-10.2); Carbon Dioxide 28 mmol/L (22.0-30.0); Chol/HDL Ratio 3.7 (1-3.5); Cholesterol 221 mg/dl (140-200); Globulin 2.9 g/dL (1.3-3.2); Glucose 96 mg/dl (74-100); HDL Cholesterol 59 mg/dl (40-60); Total Protein,Serum 6.9 g/dl (6.3-8.2); Triglycerides 110 mg/dl (30-150); VLDL Cholesterol 22 mg/dL (0-40)
[2024-04-20 11:05] LABS: Direct LDL Cholesterol 122.54 mg/dL (100-129)
[2024-04-20 11:12] LABS: 25-OH Vitamin D, Total 57.8 ng/mL (30-100)
[2024-04-20 13:53] LABS: Thyroid Stimulating Hormone 1.17 uIU/mL (0.465-4.68)
[2024-04-20 14:12] LABS: Vitamin B12 825 pg/mL (239-931)
== END 2024-04-20 23:59 | disposition home or self-care (01) ==
LOC: LAB 09:19
PROVIDERS: Visit Provider Nurse Practitioner Family
DX: R53.83 Other fatigue (principal); E03.9 Hypothyroidism, unspecified; Z68.30 Body mass index [BMI] 30.0-30.9, adult; E66.9 Obesity, unspecified
CPT/HCPCS: 36415; 80050; 80053; 80061; 82306; 82607; 84443; 85025

== ENCOUNTER 2024-05-06 10:43 | Outpatient (CLI) | payer OTHER, SELFPAY ==
--- NOTE | 2024-05-06 10:47 | XR_ITS ---
FINAL REPORT CLINICAL HISTORY: right hand pain FINDINGS: Three views show no evidence of acute displaced fracture or dislocation of the visualized bony architecture. The joint spaces appear normal. IMPRESSION: Unremarkable exam. Reviewed, Interpreted and Dictated by Hailee Mims MD Transcribed by Gaby Clay Authenticated and [facility]
--- NOTE | 2024-05-06 14:43 | MR_ITS ---
FINAL REPORT TECHNIQUE: Multiplanar and multisequence MRI imaging was obtained of the right hand. CLINICAL HISTORY: Rt Hand Pain. PUT MARKER ON KNOT. KNOT IS PAINFUL TO TOUCH COMPARISON: None FINDINGS: There is a marker localizing third reported palpable abnormality overlying the volar aspect of the third metacarpal head. There is no cystic or soft tissue mass seen at this site. There is minimal nonspecific increased T2 signal of the subcutaneous tissues noted on coronal image 8 of series 11 and axial image 22 of series 7. Signal abnormality measures 14 mm in diameter by 4 mm in thickness. The tendons are unremarkable. There are 2 benign cysts in the third metacarpal head. The largest measures up to 4 mm. There is a tiny oval ganglion cyst along the dorsal lateral third metacarpal head measuring 4 x 2 mm. IMPRESSION: Nonspecific ill-defined T2 signal abnormality in the subcutaneous tissues overlying the third digit flexor tendons at the level of the metatarsal head. There are no associated masslike features. This could be localized inflammation. MRI follow-up may be considered should the palpable abnormality progress. Reviewed, Interpreted and Dictated by Hailee Mims MD Transcribed by Mily Brian Authenticated and [facility]
== END 2024-05-06 23:59 | disposition home or self-care (01) ==
PROVIDERS: PCP Internal Medicine Adolescent Medicine; Visit Provider Internal Medicine Adolescent Medicine
DX: M25.511 Pain in right shoulder (principal); M67.441 Ganglion, right hand
CPT/HCPCS: 73130; 73218

== ENCOUNTER 2024-07-29 08:44 | Outpatient (CLI) | payer OTHER, SELFPAY ==
--- NOTE | 2024-07-29 08:56 | XR_ITS ---
FINAL REPORT CLINICAL HISTORY: LT ANKLE PAIN COMPARISON: None FINDINGS: LEFT ANKLE Three views demonstrate no acute fracture or dislocation. The visualized joint spaces are normally aligned. The soft tissues are unremarkable. A small plantar calcaneal spur is present. IMPRESSION: No acute bony abnormality. Small plantar calcaneal spur. Reviewed, Interpreted and Dictated by Mcihael Shukla MD Transcribed by Carly Powell Authenticated and [facility]
[2024-07-29 09:26] LABS: Alanine Aminotransferase 18 U/L (12-78); Albumin Level 3.8 g/dl (3.5-5.0); Albumin/Globulin Ratio 1.2 (1.1-1.8); Alkaline Phosphatase 63 U/L (38-126); Anion Gap 5.9 mEq/L (5-15); Aspartate Amino Transferase 29 U/L (14-36); Bilirubin,Total 0.6 mg/dl (0.2-1.3); Blood Urea Nitrogen 17 mg/dl (7-17); Calcium 9.1 mg/dl (8.4-10.2); Carbon Dioxide 29 mmol/L (22.0-30.0); Chloride 107 mmol/L (98-107); Chol/HDL Ratio 3.8 (1-3.5); Cholesterol 231 mg/dl (140-200); Estimated Glomerular Filt Rate 58 ml/min (>60); GFR (African American) 70 ML/MIN (>60); Globulin 3.2 g/dL (1.3-3.2); Glucose 96 mg/dl (74-100); HDL Cholesterol 61 mg/dl (40-60); Potassium 3.9 mmoL/L (3.5-5.1); Sodium 138 mmol/L (136-145); Triglycerides 130 mg/dl (30-150); VLDL Cholesterol 26 mg/dL (0-40)
[2024-07-29 09:37] LABS: Direct LDL Cholesterol 129.63 mg/dL (100-129)
[2024-07-29 09:55] LABS: Thyroid Stimulating Hormone 3.35 uIU/mL (0.465-4.68)
== END 2024-07-29 23:59 | disposition home or self-care (01) ==
LOC: RAD 08:45
PROVIDERS: PCP Nurse Practitioner Family; Visit Provider Nurse Practitioner Family
DX: M25.572 Pain in left ankle and joints of left foot (principal); E78.5 Hyperlipidemia, unspecified; N18.2 Chronic kidney disease, stage 2 (mild); E03.9 Hypothyroidism, unspecified
CPT/HCPCS: 36415; 73610; 80053; 80061; 84443

== ENCOUNTER 2024-08-02 06:35 | Day surgery (SDC) | payer OTHER, SELFPAY ==
[2024-07-27 14:29] VITALS: BMI 30.8
[2024-08-02 07:15] VITALS: BP 97/68; PULSE 72; RESP 18; TEMP 36.1; O2SAT 98
[2024-08-02] MEDS: LACTATED RINGERS 1000ML 1,000 ML 100 ML IV (07:21)
[2024-08-02 07:43] VITALS: O2SAT 98
--- NOTE | 2024-08-02 08:00 | P.PCN_ITS ---
[facility] Procedure Note Date: 08/02/24 Time: 08:00 Procedure Note:: Upper Endoscopy Procedure Report: Esophagogastroduodenoscopy with cold biopsies Endoscopost: Chandu Whitfield II, MD Referring Physician: Oliver Castaneda M.D. Date of Procedure: August 02, 2024 Equipment: Olympus GIF 190 standard upper endoscope Sedation: MAC sedation Indications: Mrs. Armenta is a 53-year-old female who is here for diagnostic upper endoscopy secondary to noncardiac chest pain. She has had cardiac eval uation including cardiac stress testing, echocardiogram and EKG which were normal. She reports the chest pain as a heaviness or pressure. She feels that anxiety might be playing a role. She was on PPI therapy and her chest pain improved after stopping this. She reports no heartburn or reflux. She does get some bloating and belching. She has some early satiety. She feels this pain is binding and it is worse with wearing tight bras. Procedure: Prior to the procedure, a history and physical exam was performed, and patient's medications and allergies were reviewed. The risks, benefits and alternatives of the sedation and procedure were discussed with the patient. All questions were answered and informed consent was obtained. The patient was brought to the procedure room. Patient identification and proposed procedure were verified by the physician and the nurse. The patient was placed in a left lateral decubitus position and the scope was passed under direct vision. Throughout the procedure, the patient's blood pressure, pulse, and oxygen saturations were monitored continuously. The upper GI endoscopy was accomplished without difficulty. The patient tolerated the procedure well. Findings: The scope was passed directly into the upper esophagus and advanced to the third portion of the duodenum. The post bulbar duodenum and duodenal bulb were normal with normal mucosa and conniventes. The scope was withdrawn through a normal duodenal bulb and pylorus into the stomach. There was some mild linear reactive gastropathy of the antrum and body. The remainder of the antrum, body and fundus of the stomach were grossly normal. Upon retroflexion there was no hiatal hernia. 2 biopsies were taken in the antrum and along the lesser curvature for histology to rule out gastritis and/or H pylori. The scope was then withdrawn into the esophagus. There was no evidence of reflux esophagitis or Cormier's. There was no Schatzki's ring. Biopsies were taken from the GE junction. There were some tertiary contractions and evidence of mild to moderate esophageal dysmotility. There was a proximal esophageal inlet patch. The remainder of the esophageal mucosa was normal. Impression: 1. Mild to moderate esophageal dysmotility with nonerosive GERD 2. Proximal esophageal inlet patch 3. Mild linear reactive gastropathy of antrum Plan: I will follow-up the biopsies and discuss diagnostic and treatment options for her noncardiac chest pain. I will proceed with screening/surveillance colonoscopy.
--- NOTE | 2024-08-02 08:14 | P.PCN_ITS ---
[facility] Procedure Note Date: 08/02/24 Time: 08:14 Procedure Note:: Colonoscopy Procedure Report: Colonoscopy Endoscopist: Chandu Whitfield II, MD Referring physician: Oliver Castaneda M.D. Date of Procedure: August 02, 2024 Equipment: Olympus 190 variable stiffness pediatric colonoscope Sedation: MAC sedation Indication: Mrs. Armenta is a 53-year-old female who is here for follow-up high risk screening/surveillance colonoscopy. Both of her grandmothers had colon cancer. The patient did have a larger adenomatous polyp removed 2 years ago (advanced adenoma). She does have chronic constipation and takes combined MiraLAX plus Konsyl. The patient does have some bloating. She reports no abdominal pain, weight loss or rectal bleeding. Her brother had pancreatic cancer. Procedure: Prior to the procedure, a history and physical exam was performed, and patient's medications and allergies were reviewed. The risks, benefits and alternatives of the sedation and procedure were discussed with the patient. All questions were answered and informed consent was obtained. The patient was brought to the procedure room. Patient identification and proposed procedure were verified by the physician and the nurse. The patient was placed in a left lateral decubitus position and the scope was passed under direct vision. Throughout the procedure, the patient's blood pressure, pulse, and oxygen saturations were monitored continuously. The colonoscopy was accomplished without difficulty. The patient tolerated the procedure well. Findings: On digital rectal examination there was normal rectal tone. There were no external hemorrhoids. The colonoscope was introduced through the anal canal to the rectum and advanced to the cecum. The ileocecal valve and appendiceal orifice were identified. The scope was advanced a short distance into the ileum which appeared grossly normal. The scope was then withdrawn into the colon. The cecum, ascending and transverse colon and mucosa were grossly normal. There were scattered diverticuli throughout the descending and sigmoid colon (LEFT colon). The rectum itself was normal. Upon retroflexion within the rectum there were grade 1-2 internal hemorrhoids. The preparation was excellent throughout with [place] Preparation Score of 9. The cecal time was 10 minutes. Impression: 1. Left-sided diverticulosis 2. Grade 1-2 internal hemorrhoids Plan: Given her family history and personal history of an advanced adenoma at last colonoscopy, I would recommend routine surveillance colonoscopy again in 5 years. I would continue the fiber bowel regimen (combined MiraLAX plus Konsyl).
[2024-08-02 08:19] VITALS: BP 92/52; PULSE 67; RESP 18; TEMP 36.2; O2SAT 96
[2024-08-02 08:29] VITALS: BP 95/58; PULSE 62; RESP 18; O2SAT 97
[2024-08-02 08:39] VITALS: BP 92/54; PULSE 65; RESP 18; O2SAT 98
[2024-08-02 09:00] VITALS: BP 99/56; PULSE 63; RESP 18; O2SAT 100
== END 2024-08-02 09:11 | disposition home or self-care (01) ==
PROVIDERS: PCP Internal Medicine Adolescent Medicine; Visit Provider Internal Medicine Gastroenterology
PROC: 0DJ08ZZ Inspection of Upper Intestinal Tract, Via Natural or Artificial Opening Endoscopic (ICD-10-PCS; CPT 43235; principal; 2024-08-02 08:00)
DX: R07.89 Other chest pain (principal); K22.4 Dyskinesia of esophagus; K21.9 Gastro-esophageal reflux disease without esophagitis; Z12.11 Encounter for screening for malignant neoplasm of colon; Z86.010 Personal history of colon polyps; K59.09 Other constipation; K57.30 Diverticulosis of large intestine without perforation or abscess without bleeding; K64.1 Second degree hemorrhoids
CPT/HCPCS: 43239; 45378; J7120

== ENCOUNTER 2024-09-21 09:13 | Outpatient (CLI) | payer OTHER, SELFPAY ==
--- NOTE | 2024-09-21 09:17 | XR_ITS ---
FINAL REPORT CLINICAL HISTORY: foot pain FINDINGS: Left foot Three views were obtained. There is no fracture or dislocation. There are mild degenerative changes. Mild hallux valgus deformity is identified. There is a small plantar calcaneal spur. No soft tissue abnormality is identified. IMPRESSION: Mild degenerative changes. Reviewed, Interpreted and Dictated by Shakir Soliz III, MD Transcribed by Gaby Clay Authenticated and [facility]
== END 2024-09-21 23:59 | disposition home or self-care (01) ==
LOC: RAD 09:14
PROVIDERS: PCP Internal Medicine Adolescent Medicine; Visit Provider Podiatrist
DX: M79.672 Pain in left foot (principal); M72.2 Plantar fascial fibromatosis
CPT/HCPCS: 73630

== ENCOUNTER 2024-11-11 08:49 | Outpatient (CLI) | payer OTHER, SELFPAY ==
[2024-11-11 09:01] LABS: Basophils # 0.1 K/mm3 (0-0.2); Basophils % 0.7 % (0.1-2.0); Eosinophils # 0.1 K/mm3 (0.0-0.4); Hematocrit 42.4 % (37.0-47.0); Hemoglobin 14.5 g/dL (12.2-16.2); Lymphocytes # 2.7 K/mm3 (0.7-4.5); Lymphocytes % 39.8 % (10-50); Mean Corpuscular HGB Conc 34.2 g/dL (31.8-35.4); Mean Corpuscular Hemoglobin 31.7 pg (27.0-31.2); Mean Corpuscular Volume 92.8 fl (81-99); Mean Platelet Volume 9.4 fl (7.4-10.4); Monocytes # 0.4 K/mm3 (0.1-1.0); Monocytes % 5.2 % (1.7-9.3); Neutrophils # 3.6 K/mm3 (1.8-7.8); Neutrophils % 53.2 % (37.0-80.0); Platelet Count 245 K/mm3 (142-424); Red Blood Count 4.57 M/mm3 (4.20-5.40); Red Cell Distribution Width 12.5 % (11.5-17.5); White Blood Count 6.7 K/mm3 (4.8-10.8)
[2024-11-11 10:34] LABS: Alanine Aminotransferase 31 U/L (12-78); Albumin Level 4.2 g/dl (3.5-5.0); Albumin/Globulin Ratio 1.4 (1.1-1.8); Alkaline Phosphatase 56 U/L (38-126); Amylase 49 U/L (30-110); Aspartate Amino Transferase 43 U/L (14-36); Bilirubin,Total 0.7 mg/dl (0.2-1.3); Blood Urea Nitrogen 14 mg/dl (7-17); Calcium 9.4 mg/dl (8.4-10.2); Carbon Dioxide 28 mmol/L (22.0-30.0); Chloride 106 mmol/L (98-107); Estimated Glomerular Filt Rate 52 ml/min (>60); GFR (African American) 62 ML/MIN (>60); Globulin 2.9 g/dL (1.3-3.2); Glucose 86 mg/dl (74-100); HDL Cholesterol 51 mg/dl (40-60); Sodium 139 mmol/L (136-145); Total Protein,Serum 7.1 g/dl (6.3-8.2)
[2024-11-11 10:35] LABS: Anion Gap 9.2 mEq/L (5-15); Potassium 4.2 mmoL/L (3.5-5.1)
[2024-11-11 10:37] LABS: Chol/HDL Ratio 4.3 (1-3.5); Cholesterol 221 mg/dl (140-200); Lipase 91 U/L (23-300); Triglycerides 246 mg/dl (30-150); VLDL Cholesterol 49 mg/dL (0-40)
[2024-11-11 10:45] LABS: Direct LDL Cholesterol 127.53 mg/dL (100-129)
[2024-11-11 11:05] LABS: Thyroid Stimulating Hormone 2.79 uIU/mL (0.465-4.68)
--- NOTE | 2024-11-11 11:10 | CT_ITS ---
FINAL REPORT TECHNIQUE: Thin section axial images were obtained through the abdomen after intravenous contrast. Oral contrast was given. Reconstruction images were obtained from the axial data. Exam was performed using dose reduction techniques. CLINICAL HISTORY: PELVIC PAIN IN FEMALE, LOWER ABD PAIN, ACUTE DIARRHEA FINDINGS: The lung bases are clear. The liver is homogeneous. The gallbladder is absent. The spleen, adrenal glands, and pancreas are unremarkable. There is no hydronephrosis or solid renal mass. Abdominal GI tract is without acute abnormality. There is no abdominal lymphadenopathy or ascites. There is long segment colonic wall thickening concerning for colitis. The appendix is normal. The uterus is unremarkable. There is a 5.5 cm right adnexal cyst. If patient is postmenopausal, this is not expected. There is no pelvic lymphadenopathy or ascites. No acute osseous abnormalities identified. IMPRESSION: Findings most consistent with infectious or inflammatory colitis. Right ovarian cyst. Recommend follow-up ultrasound in 2 to 3 months. Reviewed, Interpreted and Dictated by Sandra Claros MD Transcribed by Gaby Clay Authenticated and [facility]
[2024-11-11] MEDS: IOPAMIDOL-370 (76%);100ML BOTTLE 75 ML IV (11:41)
[2024-11-11] MEDS: SODIUM CHLORIDE 0.9% 10ML SYR (RAD ONLY) 10 ML IV (11:41)
[2024-11-11 14:33] LABS: Adenovirus F 40/41, stool Not Detected (NotDetected); Astrovirus Not Detected (NotDetected); Campylobacter Not Detected (NotDetected); Clostridium Difficile A/B, PCR Not Detected (NotDetected); Cryptosporidium Not Detected (NotDetected); Cyclospora Cayetanesis Not Detected (NotDetected); Entamoeba histolytica Not Detected (NotDetected); Enteroaggregative E coli Not Detected (NotDetected); Enteropathogenic E coli Not Detected (NotDetected); Enterotoxigenic E coli Not Detected (NotDetected); Giardia lamblia Not Detected (NotDetected); Norovirus Not Detected (NotDetected); Plesimonas Shigalloides, PCR Not Detected (NotDetected); Rotavirus A Not Detected (NotDetected); Salmonella, PCR Not Detected (NotDetected); Sapovirus Not Detected (NotDetected); Shiga-like toxin E coli Not Detected (NotDetected); Shigella Enterovasive E coli Not Detected (NotDetected); Vibrio Cholerae Not Detected (NotDetected); Vibrio, PCR Not Detected (NotDetected); Yersinia Entercolitica, PCR Not Detected (NotDetected)
== END 2024-11-11 23:59 | disposition home or self-care (01) ==
PROVIDERS: PCP Internal Medicine Adolescent Medicine; Visit Provider Nurse Practitioner Family
DX: R10.2 Pelvic and perineal pain (principal); R10.30 Lower abdominal pain, unspecified; R19.7 Diarrhea, unspecified; R11.0 Nausea
CPT/HCPCS: 36415; 74177; 80053; 80061; 82150; 83690; 84443; 85025; 87086; 87507; Q9967

== ENCOUNTER 2025-01-19 07:16 | Outpatient (CLI) | payer OTHER, SELFPAY ==
--- NOTE | 2025-01-19 07:16 | US_ITS ---
PROCEDURE: US TRANSVAGINAL CLINICAL INDICATION: Rt Ovarian Cyst COMPARISON: No exams were available for comparison FINDINGS: Transvaginal sonographic images of the pelvis were obtained. UTERUS: 7.8cm x 5.2 cmx 4.4cm anteverted with a combined endometrial thickness of 5.1mm. There are post ablation changes. There is a small amount of fluid in the lower uterine segment. LEFT OVARY: [id number] with a volume of 1.3ml. The left ovary is difficult to visualize. RIGHT OVARY: 6cmx [id number] with a volume of 105.4ml. There is a simple appearing cyst that measures 5.6 cm x 5.3 cm x 5.3 cm. There is a 2nd small cyst superiorly within the larger cyst that measures 1.6 cm x 1.3 cm. There are no excrescences or wall thickening. Color Doppler score is 1. Both ovaries are seen. Doppler flow to both ovaries are seen. There is no fluid in the cul-de-sac. IMPRESSION: 1. Anteverted uterus normal in shape and size. The endometrium measures 5.1 mm and there are post ablation changes. There is a small amount of fluid in the lower uterine segment. 2. Left ovary is difficult to see and appears normal and atrophic. 3. Within the right ovary there is a simple cyst measuring 5.6 cm in size. There is a 2nd smaller cyst superiorly measuring 1.6 cm. 4. Cyst is defined as 0-rads II- almost certainly benign and follow-up in 1 year is recommended. 5. No fluid in the cul-de-sac. Dictated by: Pee Back MD 01/19/2025 09:59 Pee Back MD in [place] 01/19/2025 09:59
[2025-01-19 07:57] LABS: Basophils # 0.1 K/mm3 (0-0.2); Basophils % 0.9 % (0.1-2.0); Eosinophils # 0.3 K/mm3 (0.0-0.4); Eosinophils % 4.2 % (0.1-12.0); Hematocrit 39.9 % (37.0-47.0); Hemoglobin 13.4 g/dL (12.2-16.2); Lymphocytes # 3.5 K/mm3 (0.7-4.5); Lymphocytes % 53.5 % (10-50); Mean Corpuscular HGB Conc 33.6 g/dL (31.8-35.4); Mean Corpuscular Hemoglobin 31.2 pg (27.0-31.2); Mean Corpuscular Volume 92.8 fl (81-99); Mean Platelet Volume 9.4 fl (7.4-10.4); Monocytes # 0.5 K/mm3 (0.1-1.0); Monocytes % 8.2 % (1.7-9.3); Neutrophils # 2.2 K/mm3 (1.8-7.8); Platelet Count 274 K/mm3 (142-424); Red Cell Distribution Width 12.9 % (11.5-17.5); White Blood Count 6.5 K/mm3 (4.8-10.8)
[2025-01-19 08:03] LABS: MANUAL DIFFERENTIAL MANUAL DIFFERENTIAL (MANUAL DIFF)
[2025-01-19 08:22] LABS: Lymphocytes % 59 % (10-50); Monocytes % 6 % (2-9); Neutrophils % 35 % (42-76); Platelet Estimate Normal; RBC Morphology Normal; Total Cells Counted 100
[2025-01-19 08:45] LABS: Alanine Aminotransferase 21 U/L (12-78); Alkaline Phosphatase 61 U/L (38-126); Anion Gap 10.1 mEq/L (5-15); Aspartate Amino Transferase 29 U/L (14-36); Bilirubin,Total 0.4 mg/dl (0.2-1.3); Blood Urea Nitrogen 14 mg/dl (7-17); Carbon Dioxide 27 mmol/L (22.0-30.0); Chloride 107 mmol/L (98-107); Estimated Glomerular Filt Rate 57 ml/min (>60); GFR (African American) 69 ML/MIN (>60); Glucose 94 mg/dl (74-100); Potassium 4.1 mmoL/L (3.5-5.1); Sodium 140 mmol/L (136-145)
[2025-01-19 09:02] LABS: HCG,Quantitative < 2 mIU/ml (0-5.42)
[2025-01-19 09:55] LABS: Albumin/Globulin Ratio 1.5 (1.1-1.8); Globulin 2.7 g/dL (1.3-3.2); Total Protein,Serum 6.7 g/dl (6.3-8.2)
== END 2025-01-19 23:59 | disposition home or self-care (01) ==
LOC: RAD 07:16
PROVIDERS: PCP Internal Medicine Adolescent Medicine; Visit Provider Nurse Practitioner Obstetrics & Gynecology
DX: N83.201 Unspecified ovarian cyst, right side (principal)
CPT/HCPCS: 36415; 76830; 80053; 84702; 85007; 85025; 85027

== ENCOUNTER 2025-01-20 10:22 | Outpatient (CLI) | payer OTHER, SELFPAY ==
[2025-01-20 10:42] LABS: Adenovirus F 40/41, stool Not Detected (NotDetected); Astrovirus Not Detected (NotDetected); Campylobacter Not Detected (NotDetected); Clostridium Difficile A/B, PCR Not Detected (NotDetected); Cryptosporidium Not Detected (NotDetected); Cyclospora Cayetanesis Not Detected (NotDetected); Entamoeba histolytica Not Detected (NotDetected); Enteroaggregative E coli Not Detected (NotDetected); Enteropathogenic E coli Not Detected (NotDetected); Enterotoxigenic E coli Not Detected (NotDetected); Giardia lamblia Not Detected (NotDetected); Norovirus Not Detected (NotDetected); Plesimonas Shigalloides, PCR Not Detected (NotDetected); Rotavirus A Not Detected (NotDetected); Salmonella, PCR Not Detected (NotDetected); Shiga-like toxin E coli Not Detected (NotDetected); Shigella Enterovasive E coli Not Detected (NotDetected); Vibrio Cholerae Not Detected (NotDetected); Vibrio, PCR Not Detected (NotDetected); Yersinia Entercolitica, PCR Not Detected (NotDetected)
[2025-01-20 15:43] LABS: Sapovirus Detected (NotDetected)
== END 2025-01-20 23:59 | disposition home or self-care (01) ==
LOC: LAB 10:22
PROVIDERS: PCP Internal Medicine Adolescent Medicine; Visit Provider Nurse Practitioner Family
DX: R19.7 Diarrhea, unspecified (principal)
CPT/HCPCS: 87506

== ENCOUNTER 2025-02-02 14:57 | Outpatient (CLI) | payer OTHER, SELFPAY ==
[2025-02-11 15:52] LABS: Miscellaneous Test SCANNED IMAGE
== END 2025-02-02 23:59 | disposition home or self-care (01) ==
LOC: LAB 14:57
PROVIDERS: PCP Internal Medicine Adolescent Medicine; Visit Provider Nurse Practitioner Obstetrics & Gynecology
DX: N83.201 Unspecified ovarian cyst, right side (principal)
CPT/HCPCS: 36415; 81500

== ENCOUNTER 2025-03-15 16:21 | Outpatient (CLI) | payer OTHER, SELFPAY ==
--- NOTE | 2025-03-15 16:29 | ECG_ITS ---
APPROVED REPORT Exam: Resting ECG HR:70 bpm ECG Measurements Heart Rate 70 AXES OH 157 P 37 QRSd 78 QRS 16 QT 355 T 30 QTc 377 Conclusion SINUS RHYTHM NORMAL ECG UNCONFIRMED REPORT Electronically signed by : Oliver Castaneda MD 03/16/2025 08:07:48
== END 2025-03-15 23:59 | disposition home or self-care (01) ==
LOC: RT 16:22
PROVIDERS: PCP Internal Medicine Adolescent Medicine; Visit Provider Physician Assistant
DX: R00.2 Palpitations (principal)
CPT/HCPCS: 93005

== ENCOUNTER 2025-03-22 07:09 | Outpatient (CLI) | payer OTHER, SELFPAY | END 2025-03-22 23:59 | disposition home or self-care (01) | LOC: RT 07:10 | PROVIDERS: PCP Internal Medicine Adolescent Medicine; Visit Provider Physician Assistant | DX: I49.1 Atrial premature depolarization (principal); I49.3 Ventricular premature depolarization; I47.10 Supraventricular tachycardia, unspecified | CPT/HCPCS: 93225; 93227 ==

== ENCOUNTER 2025-03-28 11:45 | Emergency (ER) | payer OTHER, SELFPAY ==
[2025-03-28 11:50] VITALS: BP 137/83; PULSE 77; O2SAT 96
--- NOTE | 2025-03-28 11:54 | XR_ITS ---
FINAL REPORT CLINICAL HISTORY: hand crush injury FINDINGS: LEFT HAND Three views demonstrate no acute fracture or dislocation. The visualized joint spaces are normally aligned. The soft tissues are unremarkable. IMPRESSION: No acute process. Reviewed, Interpreted and Dictated by Michael Shukla MD Transcribed by Raisa Beltre Authenticated and [facility]
[2025-03-28 11:55] VITALS: BP 137/83; PULSE 74; RESP 16; TEMP 36.8; O2SAT 98; BMI 30.8
[2025-03-28] MEDS: IBUPROFEN 800 MG TABLET PO (12:03)
[2025-03-28] MEDS: ACETAMINOPHEN 500MG TAB 1000 MG PO (12:06)
--- NOTE | 2025-03-28 12:45 | ED_ITS ---
Discharge Plan Disposition Patient Disposition: Home, Self-Care Condition: Good Prescriptions Prescriptions: No Action Gracie Falkta 200-62.5-25 mcg blister with device 1 inh INHALATION DAILY Patient Comments: INHALE 1 PUFF BY MOUTH EVERY DAY buspirone 10 mg tablet 10 mg PO BID Qty: 60 2RF lorazepam 1 mg tablet 1 mg PO BID PRN (Reason: Anxiety) Qty: 60 2RF dicyclomine 10 mg capsule 10 mg PO TID PRN (Reason: abdominal pain) Qty: 90 2RF levothyroxine [Synthroid] 75 mcg tablet 75 mcg PO DAILY psyllium husk 6 gram/6 gram powder 6 g PO DAILY Patient Comments: TAKE 1 TABLESPOONFUL DAILY DIRECTED polyethylene glycol 3350 17 gram/dose powder 17 g PO DAILY Patient Comments: DISSOLVE 17 GRAMS OF POWDER INTO 4 TO 8 OUNCES OF WATER, JUICE, SODA,COFFEE, OR TEA THEN DRINK ONCE DAILY fluticasone propionate [Flonase Allergy Relief] 50 mcg/actuation spray,suspension 1 spray INTRANASAL DAILY Qty: 16 3RF Rx Instructions: administer into each nostril vilazodone [Viibryd] 40 mg tablet 40 mg PO DAILY Qty: 30 2RF Rx Instructions: must administer with a meal/food progesterone micronized 100 mg capsule See Rx Instructions .ROUTE .COMPLEX Qty: 90 3RF Dose Instruction: TAKE ONE CAPSULE BY MOUTH EVERY DAY FOR hormone replacement Rx Instructions: TAKE ONE CAPSULE BY MOUTH EVERY DAY FOR hormone replacement estradiol 1 mg tablet See Rx Instructions .ROUTE .COMPLEX Qty: 90 3RF Dose Instruction: TAKE ONE TABLET BY MOUTH EVERY DAY Rx Instructions: TAKE ONE TABLET BY MOUTH EVERY DAY Xifaxan 550 mg tablet 550 mg PO TID Qty: 42 0RF Rx Instructions: Take 1 tablet p.o. 3 times daily for IBS cetirizine 10 MG tablet 10 mg PO DAILY Referrals Follow up/Referrals: Oliver Castaneda MD [Primary Care Provider] - See instructions Activity Restrictions/Add. Instructions Additional Instructions/Restrictions: Take Tylenol and ibuprofen every 6 hours as needed for pain control over the next 3 to 4 days. Using the hand as able. Apply ice for 20 minutes at a time and never directly onto the skin. Wash hands with soap and water as usual. All ow the Steri-Strip to fall off on its own. Please return to ED if your symptoms worsen, change in location, change in severity, new symptoms develop or if you become concerned for your health. Clinical Impressions Clinical Impression: Injury of hand, left Qualifiers: Encounter type: initial encounter Qualified Code(s): S69.92XA - Unspecified injury of left wrist, hand and finger(s), initial encounter Skin tear of left hand without complication Qualifiers: Encounter type: initial encounter Qualified Code(s): S61.412A - Laceration without foreign body of left hand, initial encounter Instructions Patient Instructions: Skin Wound Print Language Print Language: Haitian Discharge ED Provider: Elly Montenegro General Adult HPI General Chief complaint: Extremity Injury, Upper Stated complaint: WC cut/bruising/pain left hand Time Seen by Provider: 03/28/25 11:54 Mode of Arrival: Ambulatory Source of Information: Patient Description of Symptoms (Recalled from ER Triage Doc. by RN): Pt presents with left hand pain after transporting a pt from [place] back into room 5. Pt caught her left hand between the door to room 5 and the stretcher. Two small skin tears to top of hand with bleeding and swelling. Pain present on top of hand. This is a workers comp case, happened here. History of Present Illness HPI narrative: Jazmine Armenta is a 54 y/o female presenting with hand injury. 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 Patient had immediate pain in the volar surface of her left hand. Patient denies numbness, tingling, weakness. Patient continues to have full range of motion of the hand. Patient denies blood thinner use. Related Data Home Medications ?Medication ?Instructions ?Recorded ?Confirmed cetirizine 10 mg tablet 10 mg PO DAILY Allergy symptoms 12/23/17 01/20/25 levothyroxine 75 mcg tablet 75 mcg PO DAILY thyroid 09/29/19 01/20/25 (Synthroid) psyllium husk 6 gram/6 gram oral 6 g PO DAILY bowel 11/08/19 01/20/25 powder polyethylene glycol 3350 17 17 g PO DAILY bowel 01/24/20 01/20/25 gram/dose oral powder fluticasone fur. 200 mcg-umeclid 1 inh inhalation DAILY asthma/copd 01/30/22 01/20/25 62.5 mcg-vilant 25 mcg inhalat.powder (Trelegy Ellipta) Previous Rx's ?Medication ?Instructions ?Recorded fluticasone propionate 50 1 spray intranasal DAILY #16 grams 07/26/24 mcg/actuation nasal spray,suspension (Flonase Allergy Relief) buspirone 10 mg tablet 10 mg PO BID mood #60 tabs 10/13/24 lorazepam 1 mg tablet 1 mg PO BID PRN Anxiety #60 tabs 10/13/24 vilazodone 40 mg tablet (Viibryd) 40 mg PO DAILY * #30 tabs 12/31/24 estradiol 1 mg tablet See Rx Instructions .Route 01/13/25 .COMPLEX #90 tabs progesterone micronized 100 mg See Rx Instructions .Route 01/13/25 capsule .COMPLEX #90 caps dicyclomine 10 mg capsule 10 mg PO TID PRN abdominal pain 01/20/25 #90 caps rifaximin 550 mg tablet (Xifaxan) 550 mg PO TID #42 tabs 02/28/25 Allergies Allergy/AdvReac Type Severity Reaction Status Date / Time cefaclor Allergy Intermediate I-RASH Verified 01/20/25 09:13 [facility] Disclaimer: The information contained in this section may have been updated after the patient was seen, as this information can be updated by other users. Medical History Epigastric pain Left foot pain Uvulitis Deviated septum Sleep apnea Thyroid nodule Asthma COPD (chronic obstructive pulmonary disease) Sleep apnea Hx of Nuzhat thyroiditis History of cardiac murmur Chronic cholecystitis Panic disorder Generalized anxiety disorder Surgical History History of endometrial ablation History of colonoscopy History of laparoscopic cholecystectomy History of sinus surgery Family History Brother Cancer Pancreatic Ca Family/Other Cancer Colon Ca Other Family history of acute heart failure Family history of cancer Lung cancer Social History Smoking Status: Never smoker second hand exposure: No alcohol intake: former substance use type: denies use current occupational status: employed Travel in the last 8 weeks?: None household members: spouse housing: house number of children: 2 current occupation: [employer] current occupational exposures/hazards: No caffeine: Yes physical activity: walking frequency: daily duration: > 90 minutes/day do you feel safe at home: Yes victim of physical abuse: No victim of emotional abuse: No victim of sexual abuse: No Other Medical History Have you received the Flu Vaccine for this season: Yes Have you received the Pneumonia Vaccine: No ROS Obtained: Yes All systems reviewed & no additional complaints except as documented Physical Exam General General appearance: alert and in no apparent distress Respiratory Respiratory exam: Present normal lung sounds bilaterally; Absent respiratory distress Cardiovascular Cardiovascular exam: Present regular rate and normal rhythm; Absent JVD Abdominal Exam Abdominal exam: Present soft; Absent distention, tenderness or guarding Extremities Exam Extremities exam: Present normal inspection, full ROM, tenderness (Volar surface left hand, small skin tear, slight edema. ROM intact of left hand and fingers.) and normal capillary refill; Absent calf tenderness Neurological Exam Neurological exam: Present alert and oriented X3 Skin Skin exam: Present warm, dry and other (Erythema, skin tear to volar surface of left hand) Medical Decision Making Medical Records Medical records reviewed: Yes I reviewed the patient's medical records. Screening: Per USPSTF and CDC recommendations, given the prevalence of disease in our region, it is our hospital?s policy to screen for HIV and viral Hepatitis for all patients aged 18 and over and those with ongoing risk factors. Osito Inquiry Pt receiving controlled substance: No Vital Signs: 03/28/25 11:50 03/28/25 11:55 03/28/25 14:03 Temperature 98.3 F 98.1 F Temperature Source Tympanic Tympanic Pulse Rate 77 78 Pulse Rate [Left] 74 Respiratory Rate 16 16 Blood Pressure 137/83 134/74 Blood Pressure [Right Arm] 137/83 Blood Pressure Mean 100 Blood Pressure Mean [Right Arm] 101 Blood Pressure Source Automatic Cuff Blood Pressure Source [Right Arm] Automatic Cuff Blood Pressure Position Sitting Blood Pressure Position [Right Arm] Sitting 02 Sat by Pulse Oximetry 96 98 Oxygen Delivery Method Room Air Room Air 03/28/25 14:04 Temperature 98.1 F Temperature Source Pulse Rate 79 Pulse Rate [Left] Respiratory Rate 14 Blood Pressure 128/79 Blood Pressure [Right Arm] Blood Pressure Mean Blood Pressure Mean [Right Arm] Blood Pressure Source Blood Pressure Source [Right Arm] Blood Pressure Position Blood Pressure Position [Right Arm] 02 Sat by Pulse Oximetry Oxygen Delivery Method Orders (Tests/Meds): ED MEDICATIONS Discontinued Medications Generic Name Dose Route Start Last Admin Trade Name Leslie PRN Reason Stop Dose Admin Acetaminophen 1,000 mg 03/28/25 11:56 03/28/25 12:06 Acetaminophen 500mg Tab PO 03/28/25 11:57 1,000 mg ONCE ONE Administration Ibuprofen 800 mg 03/28/25 11:57 03/28/25 12:03 Ibuprofen 800 Mg Tablet PO 03/28/25 11:58 800 mg ONCE ONE Administration ORDERS Category Date Time Status XR hand LT min 3V Stat Exams 03/28/25 11:54 Completed Medical Decision Narrative: In summary, this is a 54-year-old female who suffered a left hand injury. Differential diagnosis includes but is not limited to fracture, dislocation, neurovascular injury, among others. Based on patient's physical exam, low concern for severe fracture or malalignment. Patient's range of motion is intact. Patient is neurovascularly intact. Patient does not take blood thinners. Patient evaluated with XR of left hand. XR evaluated by me and negative for fracture or malalignment. Patient had 2 small skin tears over the volar surface of the left hand. Patient wash the area with soap and water. These skin tears did not require repair with glue or sutures. A Steri-Strip was placed across both. Patient given the results of her XR and given work restriction recommendations. All questions answered. Patient discharged in stable condition. Elly Montenegro MD Critical Care Critical Care Time Critical Care Time: No
[2025-03-28 14:03] VITALS: BP 134/74; PULSE 78; RESP 16; TEMP 36.7; O2SAT 100
[2025-03-28 14:04] VITALS: BP 128/79; PULSE 79; RESP 14; TEMP 36.7; O2SAT 97
== END 2025-03-28 14:04 | disposition home or self-care (01) ==
PROVIDERS: Emergency Provider Student in an Organized Health Care Education/Training Program; PCP Internal Medicine Adolescent Medicine
DX: S69.92XA Unspecified injury of left wrist, hand and finger(s), initial encounter (principal); S61.412A Laceration without foreign body of left hand, initial encounter; M79.642 Pain in left hand; W23.0XXA Caught, crushed, jammed, or pinched between moving objects, initial encounter
CPT/HCPCS: 73130; 99283

== ENCOUNTER 2025-04-07 08:54 | Outpatient (CLI) | payer OTHER, SELFPAY | END 2025-04-07 23:59 | disposition home or self-care (01) | LOC: RT 08:55 | PROVIDERS: PCP Internal Medicine Adolescent Medicine; Visit Provider Nurse Practitioner Family | DX: I48.0 Paroxysmal atrial fibrillation (principal); I49.1 Atrial premature depolarization; I47.19 Other supraventricular tachycardia; I49.3 Ventricular premature depolarization | CPT/HCPCS: 93270 ==

== ENCOUNTER 2025-04-13 08:32 | Outpatient (CLI) | payer OTHER, SELFPAY ==
--- NOTE | 2025-04-13 08:30 | CT_ITS ---
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 A noncontrast coronary calcium scan was performed. A CT attenuation threshold of 130 Hounsfield units (HU) was used for the detection of calcium in contiguous voxels of 1 sq mm in area to be counted as individual lesions. Bolus tracking in the ascending aorta with a threshold of 180 HU was performed. Immediately afterwards, ECG synchronized cardiac CT was then performed from the cardiac base to apex using retrospective gating with ECG tube current modulation. A total of 85 mL of Isovue 370 mg/mL contrast medium was administered at 5 mL/sec followed by a saline flush using a biphasic injection protocol. A tube voltage of 120 KVp was used. The average heart rate at the time of acquisition was 58 bpm and regular. Image Reconstruction Transaxial images were reconstructed at 0.67 mm slide thickness. Data was reviewed interactively on an advanced workstation capable of 2 and 3-dimensional displays in all conventional reconstruction formats, including multiplanar reformations, maximum intensity projections, curved multiplanar reformations, and volume rendered reconstructions. When applicable, selected routine images describing the relevant coronary anatomy and pathology were saved and sent to PACS. Complications None Technical Quality Overall image quality was good. Coronary artery opacification was adequate. Total DLP (Dose-Length Product) is 1729.0 mGy-cm. The reported value represents the total of one or more individual components during the CT acquisition of this date and at this time, and as such, the same value may appear in more than one CT report depending on the interpreting/reporting physicians. COMPARISON None FINDINGS CT Coronary Calcium Scoring LMA (Left Main Artery) = 0 LAD (Left Anterior Descending) = 0 LCX (Left Coronary Circumflex) = 0 RCA (Right Coronary Artery) = 0 Total Calcium Score = 0 using the AJ-130 method. The interpretation of the calcium heart score is based on the following continuum*: 0 = no calcified plaque detected (risk of coronary artery disease is very low ??? less than 5%) 1-10 = calcium detected in extremely minimal levels (risk of coronary diseases is still low ??? less than 10%) 11-100 = mild levels of plaque detected with certainty (mild or minimal narrowing of heart arteries is likely) 101-400 = definite,at least moderate levels of plaque detected (relatively high risk of a heart attack within 3-5 years) >401-999 = extensive levels of plaque detected (high risk of heart attack, high levels of vascular disease are present, high likelihood of at least one significant coronary narrowing) *The calcium heart score quantifies the burden of coronary calcification/plaque in the coronary arteries. The calcium heart score is not able to evaluate the presence or burden of non-calcified (i.e. soft) plaque. There is no identifiable calcification in the aortic valve, mitral annulus or mitral valve, pericardium, or myocardium. Coronary CT Angiography The coronary arterial system is right dominant. Quantitative Stenosis Grading: Left Main (LM): The left main originates normally from the left sinus of Valsalva. The LM bifurcates into the left anterior descending artery and left circumflex artery. The LM is patent with no evidence of atherosclerosis. Left Anterior Descending (LAD) and Diagonal Branches: The LAD gives off 3 diagonal branch(es). The LAD and its branches are patent with no evidence of atherosclerosis. There is no evidence of LAD-myocardial bridge. Ramus-intermedius (RI): The RI is patent. Left Circumflex (LCX) and Obtuse Marginals (OM): The LCX gives off 2 Obtuse Marginal (OM) branch(es). The LCX and its branches are patent with no evidence of atherosclerosis. Right Coronary Artery (RCA): The RCA originates normally from the right sinus of Valsalva. The RCA gives off a posterior descending artery (PDA) and posterolateral (PL) branches. The RCA and its branches are patent with no evidence of atherosclerosis. Non-Coronary Cardiac Findings: Analysis of the left ventricular (LV) structure and function was performed after 3-D reconstruction of the LV from axial images, with user-corrected automatic contouring for assessment of LV volumes and user-defined reconstruction from oblique planes for measurement of 3-D cardiac structure and function. -The left ventricle systolic function is normal. -There is no left atrial appendage filling defect. Two right pulmonary veins and two left pulmonary veins drain normally into the left atrium. -No pericardial thickening or calcification. -Central and branch pulmonary arteries in the [id number] are unremarkable. -Thoracic aorta within the visualized thoracic aortic-branches in the [id number] is unremarkable. Extracardiac Structures No significant extra-cardiac findings. Note, however, that this study is focused on the cardiac findings. IMPRESSION -Absence of coronary calcification with an Agatston score = 0 using the AJ-130 method. -No evidence of significant flow-limiting atherosclerosis of the coronary arteries. -CAD-RADS 0. Management recommendations per ACC/AHA guidelines*, as clinically appropriate. *Recommendations: CAD RADS 0: Reassurance. Consider non-atherosclerotic causes of chest pain. CAD RADS 1: Consider non-atherosclerotic causes of chest pain. Consider preventive therapy and risk factor modification. CAD RADS 2: Consider non-atherosclerotic causes of chest pain. Consider preventive therapy and risk factor modification, particularly for patients with nonobstructive plaque in multiple segments. CAD RADS 3: Consider further functional testing. Consider symptom-guided anti-ischemic and preventive pharmacotherapy as well as risk factor modification per published guideline statements. CAD RADS 4A: Consider further functional testing or invasive coronary angiography with revascularization per published guideline statements. Consider symptom-guided anti-ischemic and preventive pharmacotherapy as well as risk factor modification per published guideline statements. CAD RADS 4B: Invasive coronary angiography recommended with revascularization per published guideline statements. Consider symptom-guided anti-ischemic and preventive pharmacotherapy as well as risk factor modification per published guideline statements. CAD RADS 5: Consider invasive angiography and/or viability assessment with revascularization per published guideline statements. Consider symptom-guided anti-ischemic and preventive pharmacotherapy as well as risk factor modification per published guideline statements. CRITICAL RESULT None COMMUNICATION Per this written report The coronary and cardiac findings of this CCTA were reviewed, reported, and signed by Efraín Puentes MD (Thinner Sprayer) Conclusion Electronically signed by : Simin Puentes MD 04/13/2025 13:24:38
[2025-04-13 08:43] VITALS: BMI 30.6
[2025-04-13] MEDS: IVABRADINE HCL 7.5MG TABLET PO (08:53)
[2025-04-13] MEDS: METOPROLOL TARTRATE 50MG TABLET PO (08:53)
[2025-04-13 08:57] VITALS: BP 112/74; PULSE 83; RESP 16; O2SAT 97
[2025-04-13 08:57] LABS: Chloride 105 mmol/L (98-107); Sodium 138 mmol/L (136-145)
[2025-04-13 08:59] LABS: Blood Urea Nitrogen 13 mg/dl (7-17); Creatinine Clearance Estimated 66 mL/min (50-200); Estimated Glomerular Filt Rate 51 ml/min (>60); GFR (African American) 62 ML/MIN (>60)
[2025-04-13 09:00] LABS: Calcium 8.6 mg/dl (8.4-10.2); Carbon Dioxide 30 mmol/L (22.0-30.0); Glucose 97 mg/dl (74-100)
[2025-04-13 09:44] VITALS: BP 117/66; PULSE 75; RESP 18; O2SAT 96
[2025-04-13] MEDS: NITROGLYCERIN 0.4MG SL TABLET SL (09:44)
[2025-04-13 09:47] VITALS: BP 93/54; PULSE 76; RESP 16; O2SAT 99
[2025-04-13 09:50] VITALS: BP 93/53; PULSE 76; RESP 18; O2SAT 98
[2025-04-13] MEDS: 0.9 % SODIUM CHLORIDE 50 ML VIAL IV (09:54)
[2025-04-13] MEDS: SODIUM CHLORIDE 0.9% 10ML SYR (RAD ONLY) 10 ML IV (09:54)
[2025-04-13] MEDS: IOPAMIDOL-370 (76%);100ML BOTTLE 85 ML IV (09:55)
[2025-04-13 10:04] VITALS: BP 95/60; PULSE 67; RESP 18; O2SAT 98
== END 2025-04-13 10:07 | disposition home or self-care (01) ==
PROVIDERS: PCP Internal Medicine Adolescent Medicine; Visit Provider Physician Assistant
DX: I48.0 Paroxysmal atrial fibrillation (principal); I49.3 Ventricular premature depolarization; I49.1 Atrial premature depolarization
CPT/HCPCS: 75574; 80048; Q9967

== ENCOUNTER 2025-04-18 08:14 | Outpatient (CLI) | payer OTHER, SELFPAY ==
--- NOTE | 2025-04-18 08:00 | MM_ITS ---
PROCEDURE INFORMATION: Exam: MG Bilateral Screening 3D Mammography Exam date and time: 04/18/2025 8:16 AM Age: 54 years old Clinical indication: Screening examination. TECHNIQUE: Imaging protocol: Bilateral Screening tomosynthesis and 2D mammography including computer-aided detection (CAD) when performed. COMPARISON: 1. MG MM DIG SCREENING MAMM BI W/CAD 04/12/2024 1:11 PM 2. MG MM DIG SCREENING MAMM BI W/CAD 01/31/2023 3:17 PM FINDINGS: MAMMOGRAPHY: Breast composition: There are scattered areas of fibroglandular density. Mass: None. Architectural distortion: None. Calcifications: No suspicious calcifications. Asymmetric density: None. Skin thickening: None. Axillary adenopathy: None. IMPRESSION: No mammographic evidence of malignancy. Annual screening is recommended unless otherwise clinically indicated. ASSESSMENT: BI-RADS Category 1: Negative.
== END 2025-04-18 23:59 | disposition home or self-care (01) ==
LOC: RAD 08:14
PROVIDERS: PCP Internal Medicine Adolescent Medicine; Visit Provider Nurse Practitioner Obstetrics & Gynecology
DX: Z12.31 Encounter for screening mammogram for malignant neoplasm of breast (principal); R92.323 Mammographic fibroglandular density, bilateral breasts
CPT/HCPCS: 77063; 77067

== ENCOUNTER 2025-07-15 07:23 | Outpatient (CLI) | payer OTHER, SELFPAY ==
[2025-07-15 07:29] LABS: Microscopic, Urine URINE MICROSCOPIC (MICROSCOPIC)
[2025-07-15 07:46] LABS: Hematocrit 41.3 % (37.0-47.0); Hemoglobin 13.8 g/dL (12.2-16.2); Immature Granulocytes % 0.2 %; Mean Corpuscular HGB Conc 33.4 g/dL (31.8-35.4); Mean Corpuscular Hemoglobin 31.3 pg (27.0-31.2); Mean Corpuscular Volume 93.7 fl (81-99); Nucleated Red Blood Cells % 0 %; Platelet Count 248 K/mm3 (142-424); Red Blood Count 4.41 M/mm3 (4.20-5.40); Red Cell Distribution Width-SD 44.2 fL; White Blood Count 6.5 K/mm3 (4.8-10.8)
[2025-07-15 08:18] LABS: Alanine Aminotransferase 16 U/L (12-78); Albumin Level 4.0 g/dl (3.5-5.0); Albumin/Globulin Ratio 1.3 (1.1-1.8); Alkaline Phosphatase 74 U/L (38-126); Anion Gap 11.3 mEq/L (5-15); Aspartate Amino Transferase 26 U/L (14-36); Bilirubin,Total 0.5 mg/dl (0.2-1.3); Calcium 8.9 mg/dl (8.4-10.2); Carbon Dioxide 28 mmol/L (22.0-30.0); Chloride 104 mmol/L (98-107); Cholesterol 222 mg/dl (140-200); Globulin 3.2 g/dL (1.3-3.2); Glucose 99 mg/dl (74-100); HDL Cholesterol 56 mg/dl (40-60); Potassium 4.3 mmoL/L (3.5-5.1); Sodium 139 mmol/L (136-145); Total Protein,Serum 7.2 g/dl (6.3-8.2); Triglycerides 131 mg/dl (30-150)
[2025-07-15 08:32] LABS: Free Thyroxine Index 2.7 ug/dL (5.93-13.13); T4 (Thyroxine) 9.2 ug/dl (5.53-11.0); Triiodothryronine (T3) Uptake 29 % (23.5-40.5)
[2025-07-15 08:33] LABS: 25-OH Vitamin D, Total 53.0 ng/mL (30-100)
[2025-07-15 09:06] LABS: Vitamin B12 771 pg/mL (239-931)
[2025-07-15 09:22] LABS: Folate 13.40 ng/mL
[2025-07-15 09:39] LABS: Blood Urea Nitrogen 18 mg/dl (7-17); Creatinine,Serum 1.00 mg/dl (0.52-1.04); Estimated Glomerular Filt Rate 57 ml/min (>60); GFR (African American) 69 ML/MIN (>60)
[2025-07-15 10:24] LABS: Thyroid Stimulating Hormone 4.22 uIU/mL (0.465-4.68)
[2025-07-15 10:27] LABS: Bilirubin,Urine Negative (Negative); Color,Urine YELLOW (Yellow); Glucose,Urine (UA) Negative (Negative); Ketones,Urine Negative (Negative); Leukocyte Esterase,Urine Negative (Negative); PH,Urine 6.0 (5.0-8.5); Protein,Urine Negative (Negative); Specific Gravity, Urine 1.025 (1.005-1.030); Urobilinogen,Urine 0.2 EU/dl (0.2)
[2025-07-15 10:35] LABS: Bacteria,Urine 1+ /lpf
== END 2025-07-15 23:59 | disposition home or self-care (01) ==
LOC: LAB 07:25
PROVIDERS: PCP Internal Medicine Adolescent Medicine; Visit Provider Internal Medicine Adolescent Medicine
DX: E03.9 Hypothyroidism, unspecified (principal); E78.5 Hyperlipidemia, unspecified; N18.2 Chronic kidney disease, stage 2 (mild); R53.83 Other fatigue; R53.81 Other malaise
CPT/HCPCS: 36415; 80053; 80061; 81001; 82043; 82306; 82607; 82746; 84436; 84443; 84479; 85025

== ENCOUNTER 2025-09-06 11:52 | Outpatient (CLI) | payer OTHER, SELFPAY ==
[2025-09-06 12:48] VITALS: BMI 30.4
--- NOTE | 2025-09-06 13:05 | ECG_ITS ---
APPROVED REPORT Exam: Resting ECG HR:80 bpm ECG Measurements Heart Rate 80 AXES IA 161 P 61 QRSd 76 QRS 61 QT 354 T 72 QTc 389 Conclusion SINUS RHYTHM LOW QRS VOLTAGE IN PRECORDIAL LEADS [QRS DEFLECTION < 1.0 mV IN CHEST LEADS] BORDERLINE ECG UNCONFIRMED REPORT Electronically signed by : Oliver Castaneda MD 09/07/2025 08:07:37
[2025-09-06 13:07] LABS: Hematocrit 38.2 % (37.0-47.0); Hemoglobin 13.0 g/dL (12.2-16.2); Immature Granulocytes % 0.3 %; Mean Corpuscular HGB Conc 34.0 g/dL (31.8-35.4); Mean Corpuscular Hemoglobin 32.4 pg (27.0-31.2); Mean Corpuscular Volume 95.3 fl (81-99); Nucleated Red Blood Cells % 0 %; Platelet Count 225 K/mm3 (142-424); Red Blood Count 4.01 M/mm3 (4.20-5.40); Red Cell Distribution Width-SD 44.6 fL; White Blood Count 6.4 K/mm3 (4.8-10.8)
[2025-09-06 13:25] LABS: Albumin Level 3.1 g/dl (3.5-5.0); Chloride 101 mmol/L (98-107); Potassium 4.1 mmoL/L (3.5-5.1); Sodium 135 mmol/L (136-145)
[2025-09-06 13:28] LABS: Alanine Aminotransferase 18 U/L (12-78); Albumin/Globulin Ratio 0.8 (1.1-1.8); Alkaline Phosphatase 75 U/L (38-126); Anion Gap 9.1 mEq/L (5-15); Aspartate Amino Transferase 31 U/L (14-36); Bilirubin,Total 0.3 mg/dl (0.2-1.3); Blood Urea Nitrogen 15 mg/dl (7-17); Carbon Dioxide 29 mmol/L (22.0-30.0); Creatinine Clearance Estimated 72 mL/min (50-200); Creatinine,Serum 1.00 mg/dl (0.52-1.04); Estimated Glomerular Filt Rate 57 ml/min (>60); GFR (African American) 69 ML/MIN (>60); Globulin 4.1 g/dL (1.3-3.2); Total Protein,Serum 7.2 g/dl (6.3-8.2)
[2025-09-06 13:29] LABS: Calcium 8.2 mg/dl (8.4-10.2); Glucose 154 mg/dl (74-100)
[2025-09-06 14:07] LABS: HCG Qualitative, Serum Negative (Negative)
== END 2025-09-06 23:59 | disposition home or self-care (01) ==
LOC: PREOP 11:52
PROVIDERS: PCP Internal Medicine Adolescent Medicine; Visit Provider Nurse Practitioner Obstetrics & Gynecology
DX: Z01.810 Encounter for preprocedural cardiovascular examination (principal); Z01.812 Encounter for preprocedural laboratory examination; R94.31 Abnormal electrocardiogram [ECG] [EKG]
CPT/HCPCS: 80053; 84703; 85025; 93005

== ENCOUNTER 2025-09-12 06:04 | Day surgery (SDC) | payer OTHER, SELFPAY ==
[2025-09-06 13:45] VITALS: BMI 30.4
[2025-09-12] VITALS (12 sets, daily range): BP systolic 103–140; BP diastolic 59–78; PULSE 72–84; RESP 16–18; TEMP 36.1–43; O2SAT 95–99
[2025-09-12] MEDS: LACTATED RINGERS 1000ML 1,000 ML 25 ML IV (06:58)
--- NOTE | 2025-09-12 07:08 | EXP.ANES.CKL ---
[facility] Disclaimer: The information contained in this section may have been updated after the patient was seen, as this information can be updated by other users. Medical History Encounter for preoperative assessment Epigastric pain Left foot pain Uvulitis Deviated septum Sleep apnea Thyroid nodule Asthma COPD (chronic obstructive pulmonary disease) Sleep apnea Hx of Nuzhat thyroiditis History of cardiac murmur Chronic cholecystitis Panic disorder Generalized anxiety disorder Surgical History History of surgery transvaginal taping History of endometrial ablation History of colonoscopy History of laparoscopic cholecystectomy History of sinus surgery Family History Brother Cancer Pancreatic Ca Family/Other Cancer Colon Ca Other Family history of acute heart failure Family history of cancer Hyperlipidemia Hypertension Lung cancer Social History (Updated 09/12/25 @ 06:49 by Maribel Coyne RN) Smoking Status: Never smoker second hand exposure: No alcohol intake: never substance use type: denies use current occupational status: employed Travel in the last 8 weeks?: None household members: spouse housing: house number of children: 2 current occupation: [employer] current occupational exposures/hazards: No caffeine: Yes physical activity: walking frequency: daily duration: > 90 minutes/day do you feel safe at home: Yes victim of physical abuse: No victim of emotional abuse: No victim of sexual abuse: No Have you lived/traveled outside [place] in past 30 days?: No Contact w/someone who lives/traveled outside [place] past 30 days?: No Exposure to someone with infectious disease in past 14 days?: No Do you have a fever (greater than 100.4 F or 38 C)?: No Have you tested positive for COVID-19?: No Exposed to someone with COVID-19 in past 14 days?: No Do you have a sore throat?: No Do you have a cough?: No Do you have any weakness?: No Are you experiencing any nausea/vomitting?: No Do you have any diarrhea?: No Are you experiencing any unusual bleeding?: No Do you have any muscle aches/pain?: No Do you have any abdominal pain?: No Are you experiencing loss of taste or smell?: No [facility] Anesthesia Checklist Patient Identification Patient Identification: Arm Band and Verbal (Name & ) Structural Data Admitted From: Home Planned Operative Procedure/s: Laparoscopic Salpingectomy Verified Documents: Surgical Consent NPO Status Verified Time NPO: 00:00 Chart Verification Results Verified: CBC, BMP and HCG Additional verifications Anesthesia Reactions: No Hx Blood Transfusions: No Blood Transfusion Reaction: No Airway Assessment Mallampati Score:: Class II C-Spine Mobility Assessed: Yes TMJ Mobility Assessed: Yes Dentition: Good Dentition Neurological Assessment Level of Consciousness: Awake, Alert and Appropriate Hx Seizures: No Numbness or tingling in extremities: No Anesthesia Plan Anesthesia Risk discussed: Yes Anesthesia Plan: Verified ASA Class: II Anesthesia Type: General
[2025-09-12] MEDS: CLINDAMYCIN PHOSPHATE/D5W 900 MG/50 ML PIGGYBACK 200 MG (07:30)
[2025-09-12] MEDS: SODIUM CHLORIDE IRRIG SOLUTION 3,000 ML 200 ML IR (08:07)
--- NOTE | 2025-09-12 08:43 | P.OP_ITS ---
Date of procedure: 09/12/25 Pre-op Diagnosis:: Right ovarian cyst, pelvic pain, right lower quadrant pain Post-op Diagnosis:: Right ovarian cyst, pelvic pain, right lower quadrant pain Procedure performed:: Laparoscopic right salpingo Surgeon:: Pee Back MD SINTER MACHINE OPERATOR:: Shawn Black Anesthesia: GETA Estimated blood loss (mL): 25 Clinical Note:: She is a 54-year-old lady who complains of right lower quadrant pain. She has been followed for about the last year with a right ovarian cyst and it has recently grown from 5 to 6 cm. It had a simple appearance. The [place] score was negative. After having discussed the risks and benefits we elected to perform a right oophorectomy and drainage of this ovarian cyst. Operative findings:: She had a normal-appearing anteverted uterus. The left ovary appeared normal and atrophic. The right ovary had a simple appearing cyst that measured 6 cm. It was filled with clear fluid. The rest of the pelvis appeared normal. Operative note:: She was taken to the operating room where general anesthesia was found be adequate. She was prepped and draped in normal sterile fashion in the seventh position. A weighted speculum space in vagina and the anterior lip of the cervix was grasped with a tenaculum. I then placed an acorn manipulator within the cervix. I then changed gloves and turned my attention to the laparoscopic portion of surgery. I injected 10 cc of 0.5% ropivacaine around the umbilicus and made a small incision within the umbilicus. I then inserted a Veress needle into the abdominal cavity. The abdominal cavity was then insufflated with carbon dioxide gas to a pressure of 20 mmHg. I then inserted an 11 mm trocar under direct vision. I then injected through and through above the pubic hairline, made a small incision and inserted a 5 mm trocar here under direct vision. I then identified the inferior epigastric arteries on the left side, injected through and through with ropivacaine and once again made a small incision and inserted a 5 mm trocar here under direct vision. I then grasped the ovary and using the harmonic scalpel I drilled into the ovarian cyst. Then using suction coagulating bath mixer I suctioned the fluid from the cyst. I then grasped the right round ligament and cut through this with harmonic scalpel. I then cut through the right utero-ovarian ligament using harmonic scalpel on coag mode. I then freed up the ovary on its infundibulopelvic ligament. I placed 2 Endoloops on the infundibulopelvic ligament and then cut away the ovary and tube. I then changed cameras and placed a 5 mm camera through the suprapubic port. Through the 11 mm port I placed an Endo Catch bag and put the ovary and tube within the Endo Catch bag. This was removed through the umbilical port. I then placed the 11 mm camera back in the 11 mm port at the umbilicus. After thoroughly inspecting the pelvis I rinsed the pelvis with warm saline and once again hemostasis was assured. I then let the gas of the abdomen and checked for hemostasis and was assured once again. I then injected approximately 30 cc of half percent ropivacaine into the pelvis. The secondary trocars were then removed under direct vision. The gas was let out of the abdomen and the camera and trocar were removed together. The deep tissues of the umbilicus were then explored and I was able to identify the anterior fascia. This was grasped with a Marie clamp and closed using a single [id number] 2-0 Vicryl suture. I then closed the deep tissues again more superficially with a 2-0 interrupted Vicryl suture. I closed the skin at the umbilicus with running subcuticular 4-0 Monocryl suture. The 5 mm trocar sites were then closed with interrupted subcuticular 4-0 Monocryl suture. Steri-Strips and then sterile dressings were applied. She tolerated the procedure well and was taken to the recovery room in excellent condition. All sponge, instrument and needle counts were correct. The estimated blood loss was less than 25 cc. Condition: stable Disposition: PACU Specimens:: Right fallopian tube and ovary. Complications:: None
--- NOTE | 2025-09-12 08:47 | EXP.ANES.I ---
[facility] Anesthesia Record Part I Anesthesia Record I Intake, IV Amount: 600 Hydration: Adequate Estimated blood loss (mL): 25 Urine output (mL): 0 Blood Products used (#): none Blood Pressure: 140/77 SaO2: 95 Pulse Rate: 83 Airway Patency: Patent Respiratory Rate: 16 Temperature: 97.5 F Patient is:: Stable and Somnolent Stable to PACU at:: 08:44
[2025-09-12] MEDS: HYDROMORPHONE 2MG/ML SYRINGE 0.5 MG IV (09:05)
[2025-09-12] MEDS: KETOROLAC 30MG/ML VIAL 30 MG IV (09:15)
[2025-09-13 11:34] VITALS: BP 103/71; PULSE 80; RESP 18; TEMP 36.1; O2SAT 99
--- NOTE | 2025-09-13 11:34 | P.PNANES_ITS ---
[facility] Anesthesia Record Part II Anesthesia Record Part II Discharge Time: 10:06 Destination: Surgical Day Care (OP Surgery) PACU nurse assessment reviewed?: Yes Patient Condition:: Good Anesthesia Complications:: None Swallowing reflex intact?: Yes Airway Patency: Patent Cyanosis?: No Blood Pressure: 103/71 SaO2: 99 Respiratory Rate: 18 Pulse Rate: 80 Temperature: 97.0 F Mental Status: Alert & Oriented Pain level:: 0 Nausea and/or vomitting:: None Intake, IV Amount: 0 Hydration: Adequate
== END 2025-09-12 10:27 | disposition home or self-care (01) ==
PROVIDERS: PCP Internal Medicine Adolescent Medicine; Visit Provider Nurse Practitioner Obstetrics & Gynecology
PROC: (CPT 58661; principal; 2025-09-12 07:30)
DX: D27.0 Benign neoplasm of right ovary (principal); E06.3 Autoimmune thyroiditis
CPT/HCPCS: 58661; 96374; J0736; J1100; J1171; J1885; J2003; J2250; J2405; J2704; J2795; J3010; J7120